=== PATIENT | female | born 1960 | race Caucasian/White ===

== ENCOUNTER → 2018-07-21 17:19 | Outpatient (CLI) | payer OTHER, MEDICAID, SELFPAY | PROVIDERS: Family Provider Physician Assistant; PCP Physician Assistant; Visit Provider Physician Assistant | DX: N30.91 Cystitis, unspecified with hematuria (principal) | CPT/HCPCS: 87077; 87086 ==

== ENCOUNTER → 2018-11-28 08:42 | Outpatient (CLI) | payer MEDICARE, MEDICAID, SELFPAY | PROVIDERS: Family Provider Physician Assistant; PCP Physician Assistant; Visit Provider Physician Assistant | DX: M54.5 Low back pain (principal); R10.2 Pelvic and perineal pain | CPT/HCPCS: 87086 ==

== ENCOUNTER → 2018-11-28 09:15 | Outpatient (CLI) | payer MEDICARE, MEDICAID, SELFPAY ==
--- NOTE | 2018-11-28 09:20 | DI.RAD.S_ITS ---
PROCEDURE: XR ABDOMEN MIN 2V INDICATIONS: Abdominal discomfort w/constipation now loose stools TECHNIQUE: 2 views of the abdomen were acquired. COMPARISON: [facility], CT, ABDOMEN WITH CONTRAST, 10/13/2013, 10:26. FINDINGS: Surgical changes and devices: None. Bowel: No pneumoperitoneum. The bowel gas pattern is normal. There is moderate to large amount of stool in distal colon. Soft tissues: The liver is enlarged measuring 25 cm in length. No suspicious abdominal calcifications. Bones: No suspicious bony abnormalities. IMPRESSION: 1. Moderate to large amount of stool in distal colon. 2. Hepatomegaly Dictated by: Codie Agrawal M.D. on 11/28/2018 at 14:37 Approved by: Codie Agrawal M.D. on 11/28/2018 at 14:39
[2018-11-28 10:57] LABS: Alanine Aminotransferase 29 IU/L (9-52); Albumin 4.4 g/dL (3.5-5.0); Albumin Globulin Ratio 1.5 (1.0-2.8); Alkaline Phosphatase 41 U/L (38-126); Aspartate Aminotransferase 20 IU/L (14-36); BUN Creatinine Ratio 23.3 (6-22); Bilirubin Total 0.6 mg/dL (0.2-1.3); Blood Urea Nitrogen 14 mg/dL (7-17); Calcium 10.1 mg/dL (8.4-10.2); Carbon Dioxide 31 mmol/L (22-32); Chloride 101 mmol/L (98-107); Estimated Glomerular Filt Rate > 60.0 mL/min (>60); Globulin 2.9 g/dL (1.7-4.1); Glucose 85 mg/dL (70-100); HEMOLYSIS < 15 (0-50); Potassium 4.4 mmol/L (3.4-5.1); Sodium 141 mmol/L (137-145); Total Protein 7.3 g/dL (6.3-8.2)
[2018-11-28 11:00] LABS: Hematocrit 38.2 % (36-46); Hemoglobin 13.2 g/dL (12.0-16.0); Mean Corpuscular HGB Conc 34.5 % (30-36); Mean Corpuscular Hemoglobin 29.4 PG (26-34); Mean Corpuscular Volume 85.1 fL (80-100); Platelet Count 263 X10^3/uL (150-400); Red Blood Cell Count 4.49 X10^6/uL (4.0-5.2); Red Cell Distribution Width 13.6 % (11.6-14.8); White Blood Cell Count 8.8 X10^3/uL (4.5-11.0)
[2018-11-28 11:03] LABS: Add Manual Diff / Slide Review YES
[2018-11-28 11:11] LABS: HEMOLYSIS < 15 (0-50); Iron 103 ug/dL (37-170)
[2018-11-28 11:22] LABS: Percent Iron Saturation 32 % (15-50); Total Iron Binding Capacity 319 ug/dL (265-497); Transferrin 250 mg/dL (206-381)
[2018-11-28 11:27] LABS: Neutrophils Absolute Manual 1320 /uL (3000-5900); RBC Morphology Normal Morphology; Total Cells Counted 100
[2018-11-28 11:28] LABS: Smudge Cells 1+
[2018-11-28 11:39] LABS: Thyroid Stimulating Hormone 1.54 uIU/mL (0.47-4.68)
[2018-11-28 11:43] LABS: Vitamin B12 613 pg/mL (239-931)
== END ==
PROVIDERS: PCP Physician Assistant; Visit Provider Physician Assistant
DX: R10.9 Unspecified abdominal pain (principal); R19.5 Other fecal abnormalities; M54.5 Low back pain; R10.2 Pelvic and perineal pain; R16.0 Hepatomegaly, not elsewhere classified
CPT/HCPCS: 36415; 74019; 80053; 82607; 83540; 83550; 84443; 85025; 87086

== ENCOUNTER → 2018-12-03 10:02 | Outpatient (CLI) | payer MEDICARE, MEDICAID, SELFPAY | PROVIDERS: PCP Physician Assistant; Visit Provider Physician Assistant | DX: R79.89 Other specified abnormal findings of blood chemistry (principal); R88.8 Abnormal findings in other body fluids and substances | CPT/HCPCS: 36415; 85060 ==

== ENCOUNTER → 2018-12-09 08:11 | Outpatient (CLI) | payer MEDICARE, MEDICAID, SELFPAY ==
--- NOTE | 2018-12-09 08:13 | DI.US.S_ITS ---
PROCEDURE: US ABDOMEN COMPLETE INDICATIONS: Hepatomegaly seen on Xray of abdomen TECHNIQUE: Real-time scanning was performed of the abdominal and retroperitoneal organs, with image documentation. COMPARISON: [facility], CT, CHEST/ABD/PEL WITH CONTRAST, 04/02/2013, 9:35. [facility], MR, ABDOMEN W&WO CONTRAST, 07/14/2013, 8:49. [facility], MR, ABDOMEN W&WO CONTRAST, 04/17/2013, 11:53. [facility], US, ABDOMEN LIMITED, 04/25/2013, 7:30. [facility], CT, ABDOMEN WITH CONTRAST, 10/13/2013, 10:26. [facility], CR, XR ABDOMEN MIN 2V, 11/28/2018, 9:36. [facility], US, ABDOMEN COMPLETE, 07/02/2012, 9:36. FINDINGS: Liver: The liver size is considered to be within normal limits. There are nonvascular structures, which are mildly hyperechoic to surrounding normal liver. Within the right lobe there is a 1.5 x 1.2 x 1.2 cm lesion. Within the left lobe there is a 1.3 x 0.9 x 1.1 cm lesion. A likely 9 mm cyst can be seen within the right lobe of the liver. Potential liver calcifications can be seen on the right posteriorly. Gallbladder: No findings of gallstones or sludge are seen. The gallbladder wall is not thickened, measuring 3 mm or less. No specific pericholecystic fluid is seen. The sonographic Garcia sign is negative. Biliary ducts: Intrahepatic bile ducts are non-dilated. Areas of ectasia can be seen within the common bile duct measuring up to 8.6 mm. Pancreas: Visualized portions of the pancreas are sonographically normal. Spleen: Spleen is normal in size and homogeneous in echotexture. Kidneys: Kidneys are normal in size and echotexture. Right kidney measures 11.1 cm long; left kidney measures 11.8 cm long. No hydronephrosis or nephrolithiasis. No solid masses. Aorta: Visualized aorta is normal in caliber at less than 3 cm. Iliacs: Proximal common iliac arteries are normal in caliber at less than 2.5 cm. IVC: Intrahepatic inferior vena cava is patent. Miscellaneous: No free abdominal fluid. IMPRESSION: The liver size is considered to be within normal limits. Hyperechoic liver lesions are seen, which are likely related to benign hemangiomas. These are better seen by prior CT. Mild biliary dilatation. As clinically appropriate, an MRCP could be considered for further evaluation (assuming that there is no contraindication to MRI). Dictated by: Landry Ramsey M.D. on 12/09/2018 at 8:26 Approved by: Landry Ramsey M.D. on 12/09/2018 at 8:33
== END ==
PROVIDERS: PCP Physician Assistant; Visit Provider Physician Assistant
DX: R16.0 Hepatomegaly, not elsewhere classified (principal); K83.8 Other specified diseases of biliary tract
CPT/HCPCS: 76700

== ENCOUNTER → 2018-12-10 16:37 | Outpatient (CLI) | payer MEDICARE, MEDICAID, SELFPAY | PROVIDERS: PCP Physician Assistant | DX: C91.10 Chronic lymphocytic leukemia of B-cell type not having achieved remission (principal) | CPT/HCPCS: 36415; 80053; 83615; 85025; 88271; 88275; 99204; 99214 ==

== ENCOUNTER → 2019-01-03 11:31 | Outpatient (CLI) | payer MEDICARE, MEDICAID, SELFPAY ==
--- NOTE | 2019-01-03 11:32 | DI.CT.S_ITS ---
PROCEDURE: CT SOFT TISSUE NECK W CON INDICATIONS: cll-staging TECHNIQUE: After the administration of intravenous contrast, 3.0 mm axial sections acquired from the sella to the aortic arch. Additional oblique axial 3.0 mm sections acquired through the pharynx. 3 mm thick coronal and sagittal reformats were generated. For radiation dose reduction, the following was used: automated exposure control. COMPARISON: [facility], CT, CT CHEST ABD PEL W CON, 01/03/2019, 13:03. [facility], CT, SOFT TISSUE NECK W&WO CONTRAST, 03/10/2016, 8:55. FINDINGS: Image quality: Excellent. Lymph nodes: Multiple sites of mildly prominent lymph nodes can be seen throughout the neck. The largest is seen on the right at level IIA, measuring 12 x 10 mm. The largest solitary lymph node on the left is also seen at level IIA measuring 14 x 9 mm. Vessels: Visualized vasculature appears patent. Neck spaces: The oropharynx, nasopharynx, and pharynx demonstrate no mucosal lesions. The vocal cords, false vocal cords, pyriform sinuses, epiglottis, vallecula, and tongue base all appear normal. Extramucosal spaces appear unremarkable. Glands: The parotid and submandibular glands appear normal. Thyroid gland demonstrates no significant CT abnormality. Miscellaneous: Visualized brain and orbits appear normal. Lung apices appear clear. Superficial soft tissues appear normal. Bones: No suspicious bony lesions. Visualized sinuses and mastoids appear unremarkable. Age-appropriate degenerative changes can be seen, which are worst at the C5-C6 level. IMPRESSION: Multiple sites of mildly prominent lymph nodes can be seen throughout the neck, which are more prominent than 2016. Incidental note is made of: Focal C5-C6 degenerative change Dictated by: Landry Ramsey M.D. on 01/03/2019 at 14:24 Approved by: Landry Ramsey M.D. on 01/03/2019 at 14:35
--- NOTE | 2019-01-03 11:32 | DI.CT.S_ITS ---
PROCEDURE: CT CHEST ABD PEL W CON INDICATIONS: cll-staging TECHNIQUE: After the administration of oral and intravenous contrast, 5 mm thick sections acquired from the lung apices to the symphysis. 5 mm coronal and sagittal reformats were performed, with additional 7 mm coronal MIP reformats through the lungs. For radiation dose reduction, the following was used: automated exposure control, adjustment of mA and/or kV according to patient size. COMPARISON: [facility], CT, CHEST/ABD/PEL WITH CONTRAST, 04/02/2013, 9:35. FINDINGS: Image quality: Excellent. CHEST: Lungs and pleura: No acute consolidation. 1 mm nodule right upper lobe on image 31 series 3. Additional 2 mm nodule seen in the left upper lobe on image 27 series 3 however this is unchanged since 04/02/13. No pleural effusions or pneumothorax. Central and peripheral airways appear patent and normal in caliber. Mediastinum: Enlarged left supraclavicular lymph node is seen on image 10 series 2 measuring 2.0 x 1.3 cm. This is increased in size since the right study from 2013. Heart size is normal. No pericardial effusion. Mildly enlarged right hilar lymph node measuring 1.5 cm short axis however this appears unchanged since the prior study. Thoracic aorta and central pulmonary arteries are normal in size. Esophagus is normal in caliber. No hiatal hernia. Chest wall: There are enlarged bilateral axillary lymph nodes, for example measuring 1.4 x 2.4 cm on the left and 1.9 x 1.5 cm on the right. Thyroid gland negative. ABDOMEN: Solid organs: Multiple hypodense lesions present in the liver, for example image 55 series 2 in the left lobe measuring 1.2 cm. Additional hypodense lesions present in the inferior tip of the liver, for example image 77 series 2 measuring 1.2 cm. These are grossly unchanged since the 2013 study suggesting hemangiomas or cysts. . Gallbladder negative. Biliary system is non dilated. Pancreas enhances normally. Spleen is enlarged measuring 12.8 cm in length. No adrenal nodules. Kidneys demonstrate normal size and enhancement, without hydronephrosis. Peritoneum and bowel: Bowel loops demonstrate normal wall thickness and caliber. No free fluid or air. Nodes and vessels: Retroperitoneal left aortic lymph node measuring 2.1 x 0.7 cm on image 74. Aorta and inferior vena cava are normal in size. Miscellaneous: Tiny fat containing umbilical hernia. PELVIS: Genitourinary: Bladder wall thickness is normal. Miscellaneous: No inguinal hernias or adenopathy. There are shotty inguinal lymph nodes measuring up to 8-9 mm, however no pathologic enlargement by size criteria Bones: No suspicious bony lesions. No vertebral body compression fractures. IMPRESSION: Mildly enlarged bilateral axillary, retroperitoneal, left supraclavicular lymph nodes as detailed above. Additional right hilar lymph node appears grossly unchanged. Mild splenomegaly. 1 mm right upper lobe pulmonary nodule. Additional chronic and incidental findings as above. Dictated by: Frankie Herrera M.D. on 01/03/2019 at 16:40 Approved by: Frankie Herrera M.D. on 01/03/2019 at 16:55
[2019-01-03 12:15] LABS: Hematocrit 37.3 % (36-46); Hemoglobin 12.8 g/dL (12.0-16.0); Mean Corpuscular HGB Conc 34.3 % (30-36); Mean Corpuscular Hemoglobin 29.2 PG (26-34); Mean Corpuscular Volume 85.2 fL (80-100); Platelet Count 258 X10^3/uL (150-400); Red Blood Cell Count 4.38 X10^6/uL (4.0-5.2); Red Cell Distribution Width 13.6 % (11.6-14.8)
[2019-01-03 12:18] LABS: Add Manual Diff / Slide Review YES
[2019-01-03 12:43] LABS: Neutrophils Absolute Manual 2750 /uL (3000-5900); RBC Morphology Normal Morphology; Total Cells Counted 100
[2019-01-03 12:53] LABS: Alanine Aminotransferase 23 IU/L (9-52); Albumin 4.8 g/dL (3.5-5.0); Albumin Globulin Ratio 1.6 (1.0-2.8); Alkaline Phosphatase 47 U/L (38-126); Aspartate Aminotransferase 22 IU/L (14-36); BUN Creatinine Ratio 23.3 (6-22); Bilirubin Total 0.6 mg/dL (0.2-1.3); Blood Urea Nitrogen 14 mg/dL (7-17); Calcium 10.2 mg/dL (8.4-10.2); Carbon Dioxide 28 mmol/L (22-32); Chloride 99 mmol/L (98-107); Estimated Glomerular Filt Rate > 60.0 mL/min (>60); Glucose 81 mg/dL (70-100); HEMOLYSIS < 15 (0-50); Lactate Dehydrogenase 388 U/L (313-618); Potassium 4.1 mmol/L (3.4-5.1); Sodium 138 mmol/L (137-145); Total Protein 7.8 g/dL (6.3-8.2)
[2019-01-07 15:14] LABS: Immunoglobulin A 49 mg/dL (81-463); Immunoglobulin G, Quantitative 1140 mg/dL (694-1618); Immunoglobulin M, Quantitative 68 mg/dL (48-271)
== END ==
PROVIDERS: PCP Physician Assistant
DX: C91.90 Lymphoid leukemia, unspecified not having achieved remission (principal)
CPT/HCPCS: 36415; 70491; 71260; 74177; 80053; 82784; 83615; 85025; Q9967

== ENCOUNTER 2019-01-06 20:55 | Emergency (ER) | payer MEDICARE, MEDICAID, SELFPAY ==
[2019-01-06 20:56] VITALS: BP 134/70; PULSE 76; RESP 16; TEMP 37.1; O2SAT 100
--- NOTE | 2019-01-06 22:18 | ED_ITS ---
HPI - Extremity Problem General Chief complaint: Extremity Problem,Nontraumatic Stated complaint: right hand cramp Time Seen by Provider: 01/06/19 21:52 Source: patient Mode of arrival: ambulatory Limitations: no limitations History of Present Illness HPI Narrative: Patient is a 50-year-old female who presents with right hand spasm. 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 She painted for about hours today with an hour long break. She says it gradually became very painful in her hands cramping. She took ibuprofen and meloxicam prior to arrival she has been trying elevated and ice it overall is quite painful. She has no redness no fever she denies any real injury. She is very tender on the wrist flexor side. She has 2 splinters in her fingers she said that they are from a adriana anaya however given there for a little while on no redness around them fairly superficial MD Complaint: extremity pain Location: right Related Data Home Medications Medication Instructions Recorded Confirmed magnesium oxide 400 mg PO QDAY #0 12/27/16 01/01/19 omega 5-ulc-mzz-fish oil [Fish Oil] 1,000 mg PO QDAY #0 12/27/16 01/01/19 acyclovir 400 mg tablet 400 mg PO TID PRN tab 03/04/18 01/01/19 cetirizine 10 mg capsule 10 mg PO DAILY 03/04/18 01/01/19 fluconazole 150 mg tablet 150 mg PO AMINS PRN tab 03/04/18 01/01/19 fluticasone propionate 50 1 spray INTRANASAL BID PRN gm 03/04/18 01/01/19 mcg/actuation nasal spray,suspension biotin 2,500 mcg capsule 2,500 mcg PO DAILY 06/13/18 01/01/19 [VITAMIN D3] 10,000 units PO QDAY #0 10/01/18 01/01/19 estradiol 0.01% (0.1 mg/gram) 1 gram VAG 2XW 11/28/18 01/01/19 vaginal cream methylcellulose (laxative) 500 mg 500 mg PO DAILY 11/28/18 01/01/19 tablet Previous Rx's Medication Instructions Recorded Disabled Parking Permit ea #1 03/12/17 lorazepam [Ativan] 0.5 - 1 mg PO QDAY PRN #30 tab 02/26/18 estradiol 10 mcg vaginal tablet 10 mcg VAG 2XW #8 tab 11/01/18 albuterol sulfate HFA 90 2 puff INHALATION Q4-6H PRN #18 11/28/18 mcg/actuation aerosol inhaler gram diclofenac 1 % topical gel 2 gram TOP QID #100 gram 11/28/18 meloxicam 15 mg tablet 15 mg PO DAILY #30 tab 11/28/18 varicella-zoster glycoE [id number] 50 mcg IM ONCE #1 each 11/28/18 adj(PF) 50 mcg/0.5 mL IM susp, kit diazepam [Valium] 5 mg PO Q12HR PRN #10 tab 01/06/19 Allergies Allergy/AdvReac Type Severity Reaction Status Date / Time adhesive [ADHESIVE] Allergy Intermediate Blisters Verified 01/06/19 21:00 codeine [CODEINE] Allergy Intermediate AGITATED, Verified 01/06/19 21:00 TACHYCARDIA, DIFFICULTY BREATHING morphine [MORPHINE] Allergy Intermediate hallucinations, Verified 01/06/19 21:00 anxiety, feeling of terror phenytoin [PHENYTOIN] AdvReac Severe Flushing, Verified 01/06/19 21:00 anxiety, red rash Review of Systems Review of Systems GENERAL: Denies chills,fever HEENT: Denies throat pain RESPIRATORY: Denies dyspnea, cough, wheezing CARDIOVASCULAR: Denies chest pain, palpitations GASTROINTESTINAL: Denies nausea, vomiting MUSCULOSKELETAL: See HPI SKIN: No rash, no laceration, no pruritus NEUROLOGIC: Denies weakness, dizziness, headache, numbness 8 point review of systems is negative except for those stated above and HPI PFSH Medical History Cerebral cavernoma (Resolved) Surgical History History of excision of mass (Resolved) Family History (Updated 08/06/18 @ 08:49 by Ann Medeiros) Father Congestive heart failure Mother History of heart surgery Social History Smoking Status: Never smoker second hand exposure: No alcohol intake: current substance use type: does not use Family History Father Congestive heart failure Mother History of heart surgery Social History Smoking Status: Never smoker second hand exposure: No alcohol intake: current substance use type: does not use Exam Initial Vital Signs Initial Vital Signs: Vital Signs Temperature 98.8 F 01/06/19 20:56 Pulse Rate 76 01/06/19 20:56 Respiratory Rate 16 01/06/19 20:56 Blood Pressure 134/70 01/06/19 20:56 Pulse Oximetry 100 01/06/19 20:56 GENERAL: Well-appearing, well-nourished and in no acute distress. CARDIOVASCULAR: peripheral pulses in tact, cap refill <2 sec RESPIRATORY: No respiratory distress, speaks in full sentences without difficulty EXTREMITIES: Normal range of motion, no clubbing or edema. Neurovascularly intact Right hand fingers are flexed. She has obvious swelling of her flexor retinaculum pain is extremely tender to touch is reproducible. She has no erythema. I am able to massage of the palmar side of the hand a little bit. She is is minimally able to extend fingers. Cap refill less than 2 seconds neurovascularly intact strong radial pulse. NEUROLOGICAL: Cranial nerves II through XII grossly intact. Normal gait and speech. SKIN: Warm, dry, no petechiae, no rashes or lesions. Course Orders Ordered: Discontinued Medications Diazepam (Valium) 5 mg PO NOW ONE Stop: 01/06/19 22:33 Last Admin: 01/06/19 22:38 Dose: 5 mg Vital Signs - 8 hr 01/06/19 20:56 01/06/19 22:47 Temperature 98.8 F Pulse Rate 76 Pulse Rate [Right Radial] 88 Respiratory Rate 16 Blood Pressure 134/70 Pulse Oximetry 100 MDM - Extremity (Nontraumatic) MDM Narrative Medical decision making narrative: At this time I think patient has an overuse injury seems to be spasm or tendinitis I do not believe it is infected. She has no definitive injury I do not think she can x-ray. She has meloxicam at home. Recommend she take 15 mg once daily. She is given a Valium to take when she gets home. She drove herself. Discharge Plan Departure Patient Disposition: Home Clinical Impression: Hand or foot spasms Discharge Date/Time: 01/06/19 22:50 Interventions: ED Discharge Assessment Last Done: 01/06/19 22:50 Instructions: DI for Muscle Spasm Activity Restrictions/Additional Instructions: *You have been diagnosed with right hand spasm *What to do: This is likely from overuse possible tendinitis which is inflamed tendon recommend rest and said compression with Dustin *Continue to take medications as directed Meloxicam 15 mg once a day do not combine with any other NSAIDs such as ibuprofen, naproxen,, Aleve, Advil etc Valium 5 mg every 12 hours only if needed for muscle spasm. Do not drive or operate heavy machinery or sign important documents while taking medication this can cause drowsiness *Follow up with your primary care provider in 2-3 days *Return to ER if you should have increasing pain, redness, or any new, worsening or concerning symptoms Prescriptions: New diazepam [Valium] 5 mg tablet 5 mg PO Q12HR PRN (Reason: muscle spasm) Qty: 10 RF: 0 No Action acyclovir 400 mg tablet 400 mg PO TID PRN (Reason: Outbreak) RF: 0 fluconazole [Diflucan] 150 mg tablet 150 mg PO AMINS PRN (Reason: Outbreak) RF: 0 fluticasone propionate 50 mcg/actuation spray,suspension 1 spray Intranasal BID PRN (Reason: Allergy Symptoms) RF: 0 cetirizine [Zyrtec] 10 mg capsule 10 mg PO DAILY RF: 0 biotin 2,500 mcg capsule 2,500 mcg PO DAILY RF: 0 estradiol 0.01 % (0.1 mg/gram) cream 1 gram VAG 2XW RF: 0 Citrucel 500 mg tablet 500 mg PO DAILY RF: 0 albuterol sulfate [Ventolin HFA] 90 mcg/actuation HFA aerosol inhaler 2 puff INHALATION Q4-6H PRN (Reason: shortness of breath or wheezing) Qty: 18 RF: 3 Shingrix (PF) 50 mcg/0.5 mL suspension for reconstitution 50 mcg IM ONCE Qty: 1 RF: 1 diclofenac sodium 1 % gel 2 gram TOP QID Qty: 100 RF: 3 meloxicam 15 mg tablet 15 mg PO DAILY Qty: 30 RF: 3 magnesium oxide 400 MG tablet 400 mg PO QDAY Qty: 0 RF: 0 omega 1-ybp-ydu-fish oil [Fish Oil] 1,000 MG capsule 1,000 mg PO QDAY Qty: 0 RF: 0 Disabled Parking Permit Qty: 1 RF: 0 lorazepam [Ativan] 1 MG tablet 0.5 - 1 mg PO QDAY PRN Qty: 30 RF: 0 [VITAMIN D3] 10,000 units PO QDAY Qty: 0 RF: 0 estradiol [Yuvafem] 10 mcg tablet 10 mcg VAG 2XW Qty: 8 RF: 11 Referrals: Lisa Velazco PA-C [Primary Care Provider] -
[2019-01-06] MEDS: diazePAM 5 MG TABLET PO (22:38)
[2019-01-06 22:47] VITALS: PULSE 88
== END 2019-01-06 22:50 | disposition home or self-care (01) ==
PROVIDERS: Emergency Provider Emergency Medicine; PCP Physician Assistant
DX: R25.2 Cramp and spasm (principal); M79.641 Pain in right hand
CPT/HCPCS: 99282; 99283

== ENCOUNTER → 2019-01-24 15:42 | Outpatient (CLI) | payer MEDICARE, MEDICAID, SELFPAY ==
[2019-01-24 18:05] LABS: Erythrocyte Sedimentation Rate 13 MM/HR (0-20)
[2019-01-26 18:55] LABS: ANA Screen, IFA Negative (Negative)
== END ==
PROVIDERS: Hospitalist; PCP Physician Assistant; Visit Provider Physician Assistant
DX: M25.539 Pain in unspecified wrist (principal)
CPT/HCPCS: 36415; 85651; 86038

== ENCOUNTER → 2019-02-26 15:48 | Outpatient (CLI) | payer MEDICARE, MEDICAID, SELFPAY ==
--- NOTE | 2019-02-26 15:55 | DI.RAD.S_ITS ---
PROCEDURE: XR HAND RT MIN 3V INDICATIONS: Concern for connective tissue disorder; has chronic lymphatic leukemia TECHNIQUE: 3 views of the hand(s) acquired. COMPARISON: None. FINDINGS: Bones: No fractures or dislocations. Carpal bones are normally aligned. No suspicious bony lesions. First CMC and triscaphe joint degeneration, mild. No focal osseous destruction or erosion identified to. 2 mm loose body or chronic fracture fragment projects adjacent to the ulnar styloid Soft tissues: No suspicious soft tissue calcifications. IMPRESSION: Mild degenerative changes as above Small loose body or chronic fracture fragment projects adjacent to the ulnar styloid. Dictated by: Frankie Herrera M.D. on 02/26/2019 at 17:21 Approved by: Frankie Herrera M.D. on 02/26/2019 at 17:24
--- NOTE | 2019-02-26 15:55 | DI.RAD.S_ITS ---
PROCEDURE: XR SHOULDER RT MIN 2V INDICATIONS: Concern for connective tissue disorder; has chronic lympahtic leukemia TECHNIQUE: 3 views of the shoulder were acquired. COMPARISON: [facility], , SHOULDER MINIMUM 2VIEW RIGHT, 06/04/2017, 8:59. FINDINGS: Bones: No fractures or dislocations. No suspicious bony lesions. Visualized ribs appear intact. Mild AC joint degeneration and glenohumeral subchondral sclerosis and spurring. No erosions identified. Soft tissues: No suspicious soft tissue calcifications. IMPRESSION: Mild right shoulder osteoarthritis Dictated by: Frankie Herrera M.D. on 02/26/2019 at 17:05 Approved by: Frankie Herrera M.D. on 02/26/2019 at 17:06
--- NOTE | 2019-02-26 15:55 | DI.RAD.S_ITS ---
PROCEDURE: XR SHOULDER LT MIN 2V INDICATIONS: Concern for connective tissue disorder; has CLL TECHNIQUE: 3 views of the shoulder were acquired. COMPARISON: [facility], , SHOULDER MINIMUM 2VIEW RIGHT, 06/04/2017, 8:59. FINDINGS: Bones: No fractures or dislocations. No suspicious bony lesions. Visualized ribs appear intact. Incidental lateral downsloping appearance of the acromion. Mild glenohumeral subchondral sclerosis burning. Soft tissues: No suspicious soft tissue calcifications. IMPRESSION: Mild left shoulder degeneration. Incidentally noted lateral downsloping appearance of the acromion. If the patient's pain or other symptoms persist, consider further evaluation with MRI Dictated by: Frankie Herrera M.D. on 02/26/2019 at 16:32 Approved by: Frankie Herrera M.D. on 02/26/2019 at 16:34
--- NOTE | 2019-02-26 15:55 | DI.RAD.S_ITS ---
PROCEDURE: XR CERVICAL SPINE 2V OR 3V INDICATIONS: Concern for connective tissue disorder; has chronic lymphatic leukemia TECHNIQUE: 4 view(s) of the cervical spine were acquired. COMPARISON: [facility], CERVICAL SPINE 2 OR 3 VIEWS, 03/21/2017, 14:07. FINDINGS: Bones: No fractures or dislocations to the C7 level. The lateral masses of C1 appear intact on the odontoid view. No suspicious bony lesions. Multilevel degenerative endplate sclerosis and spurring. Diffuse facet arthropathy. Severe disc space narrowing of the C5-C6 level. Mild C6-C7 disc space narrowing. Mild dextrocurvature. Soft tissues: No prevertebral soft tissue swelling. IMPRESSION: Overall, grossly unchanged examination since 07/22/17 as above. Dictated by: Frankie Herrera M.D. on 02/26/2019 at 17:06 Approved by: Frankie Herrera M.D. on 02/26/2019 at 17:10
--- NOTE | 2019-02-26 15:55 | DI.RAD.S_ITS ---
PROCEDURE: XR HAND LT MIN 3V INDICATIONS: Concern for connective tissue disorder; has chronic lympahtic leukemia TECHNIQUE: 3 views of the hand(s) acquired. COMPARISON: None. FINDINGS: Bones: No fractures or dislocations. Carpal bones are normally aligned. No suspicious bony lesions. First CMC and triscaphe joint degeneration. No focal osseous destruction or erosions identified. Soft tissues: No suspicious soft tissue calcifications. IMPRESSION: Mild degenerative changes as above. Dictated by: Frankie Herrera M.D. on 02/26/2019 at 17:18 Approved by: Frankie Herrera M.D. on 02/26/2019 at 17:21
== END ==
PROVIDERS: PCP Physician Assistant; Visit Provider Physician Assistant
DX: C91.10 Chronic lymphocytic leukemia of B-cell type not having achieved remission (principal); M54.2 Cervicalgia; M79.89 Other specified soft tissue disorders; M25.541 Pain in joints of right hand; M25.542 Pain in joints of left hand; M19.012 Primary osteoarthritis, left shoulder; M19.011 Primary osteoarthritis, right shoulder; M18.0 Bilateral primary osteoarthritis of first carpometacarpal joints; M19.032 Primary osteoarthritis, left wrist; M19.031 Primary osteoarthritis, right wrist
CPT/HCPCS: 72040; 73030; 73130

== ENCOUNTER → 2019-03-04 13:00 | Oncology outpatient (ONC) | payer MEDICARE, MEDICAID, SELFPAY ==
[2018-12-17 10:39] LABS: Miscellaneous to LabCorp SEE SEPARATE REPORTS
[2019-01-01 15:58] VITALS: BP 108/67; PULSE 81; RESP 18; TEMP 36.9; O2SAT 100
--- NOTE | 2019-01-01 16:33 | P.CONONC_ITS ---
History of Present Illness - Data of Consult Consult date: 01/01/19 Primary Care Provider: Lisa Velazco PA-C - Consult Narrative Narrative: Diagnosis: CLL, not yet staged. History of present illness: Reina Leyva is a 58 year old female who is referred for further evaluation of a newly diagnosed CLL. The patient reports that she has had a number of unusual symptoms. The 1st was some abdominal and back pain. This has been present for several weeks to few months. She had a plain film of the abdomen that showed above in stool. She was treated with some colonics. She did have some mucousy blood mixed in with the stool but did have relief of her constipation and her back pain has resolved she still is having some intermittent difficulty with her bowels. Her other big complaint has joint pain and bone pain particularly in the feet but also in the hands. She has noted some swelling in her feet. she also has been aware of some swollen lymph nodes in her neck. She has had some fatigue. She also notes some hot flashes and sweats. Her appetite has been stable. She denies any nausea or vomiting. She did lose some weight around the time she was doing colonics but has gained back. As part of her evaluation, she had a CBC done on November 28. It showed a white count of 8.8 with a normal hemoglobin and platelet count. She had 61% lymphocytes noted. This would get an absolute lymphocyte count of 5368. Flow cytometry was done that showed a monoclonal B-cell population consistent with CLL. Fish panel was normal. CD 38 was negative by flow cytometry. Her past medical history is notable for hyperparathyroidism. She has had a previous parathyroidectomy. She has had some her G and cold sores. She tells me that she has had a prior colonoscopy although she can't remember exactly when. Her current medications include acyclovir is needed albuterol biotin Zyrtec diclofenac vaginal estradiol fluconazole as needed Flonase lorazepam meloxicam and vitamin-D. Her family history is notable for her father having had CLL. Her mother has MGUS. Social history: She does not smoke or use alcohol. CC: Osmani Hwang MD Home Medications and Allergies Home Medications Medication Instructions Recorded Confirmed Type magnesium oxide 400 mg PO QDAY #0 12/27/16 01/01/19 History omega [id number] oil [Fish Oil] 1,000 mg PO QDAY #0 12/27/16 01/01/19 History Disabled Parking Permit ea #1 03/12/17 11/28/18 Rx lorazepam [Ativan] 0.5 - 1 mg PO QDAY PRN #30 tab 10/29/17 01/01/19 Rx acyclovir 400 mg tablet 400 mg PO TID PRN tab 03/04/18 01/01/19 History cetirizine 10 mg capsule 10 mg PO DAILY 03/04/18 01/01/19 History fluconazole 150 mg tablet 150 mg PO AMINS PRN tab 03/04/18 01/01/19 History fluticasone propionate 50 1 spray INTRANASAL BID PRN gm 03/04/18 01/01/19 History mcg/actuation nasal spray,suspension biotin 2,500 mcg capsule 2,500 mcg PO DAILY 06/13/18 01/01/19 History [VITAMIN D3] 10,000 units PO QDAY #0 10/01/18 01/01/19 History estradiol 10 mcg vaginal tablet 10 mcg VAG 2XW #8 tab 11/01/18 01/01/19 Rx albuterol sulfate HFA 90 2 puff INHALATION Q4-6H PRN #18 11/28/18 01/01/19 Rx mcg/actuation aerosol inhaler gram diclofenac 1 % topical gel 2 gram TOP QID #100 gram 11/28/18 01/01/19 Rx estradiol 0.01% (0.1 mg/gram) 1 gram VAG 2XW 11/28/18 01/01/19 History vaginal cream meloxicam 15 mg tablet 15 mg PO DAILY #30 tab 11/28/18 01/01/19 Rx methylcellulose (laxative) 500 mg 500 mg PO DAILY 11/28/18 01/01/19 History tablet varicella-zoster glycoE [id number] 50 mcg IM ONCE #1 each 11/28/18 Rx adj(PF) 50 mcg/0.5 mL IM susp, kit Allergies Allergy/AdvReac Type Severity Reaction Status Date / Time adhesive [ADHESIVE] Allergy Intermediate Blisters Verified 11/28/18 08:12 codeine [CODEINE] Allergy Intermediate AGITATED, Verified 11/28/18 08:12 TACHYCARDIA, DIFFICULTY BREATHING morphine [MORPHINE] Allergy Intermediate hallucinations, Verified 11/28/18 08:12 anxiety, feeling of terror phenytoin [PHENYTOIN] AdvReac Severe Flushing, Verified 11/28/18 08:12 anxiety, red rash Medical History - Medical, Surgical, Family History Medical History: Medical History (Updated 01/01/19 @ 16:22 by Osmani Hwang MD) Cerebral cavernoma Surgical History: Surgical History (Updated 08/06/18 @ 08:48 by Ann Medeiros) History of excision of mass Family History: Family History (Updated 08/06/18 @ 08:49 by Ann Medeiros) Father Congestive heart failure Mother History of heart surgery - Social History Smoking Status: Never smoker Review of Systems - Patient Self-Reported Symptoms SR Constitution: Fatigue/Malaise, Night Sweats SR eye issues: Vision changes SR ears, nose, mouth, throat issues: Swollen glands SR Cardiovascular issues: Palpitations SR Gastrointestinal issues: Diarrhea, Constipation SR Genitourinary issues: Frequent urination SR Musculoskeletal issues: Joint pain or swelling, Difficulty walking, Bone pain SR Neuro issues: Headache, Numbness or tingling SR Hematologic issues: Bleeding/bruising, Swollen lymph nodes Constitutional: normal activity level, no weight loss Eyes: change in vision Respiratory: shortness of breath Gastrointestinal: constipation, abnormal stools, change in bowel habits, no change in appetite Musculoskeletal: pain, swelling Psychiatric: anxiety Endocrine: hormone therapy Hematologic/Lymphatic: enlarged lymph nodes Exam Vital signs: Vital Signs Temp Pulse Resp BP Pulse Ox 01/01/19 15:58 98.5 F 81 18 108/67 100 Intake and Output 01/01/19 01/01/19 01/01/19 07:59 15:59 23:59 Other: Weight 62.2 kg Patient Weight 01/01/19 23:59 Weight 62.2 kg - Constitutional positive no acute distress, positive average body habitus - Routine HEENT Exam Head: Present: normocephalic, atraumatic Eye: Present: EOMI, PERRL. Absent: conjunctival icterus, scleral injection ENT: Present: mucous membranes moist, oropharynx clear Comments: She does have a small stye on the left lower eyelid. - Routine Neck Exam Present: supple, lymphadenopathy. Absent: thyromegaly Comments: She has bilateral small adenopathy all less than a cm. There is also some small supraclavicular nodes. - Routine Chest/Breast/Axilla Exam Axillae: Present: lymphadenopathy Comments: She has some small right-sided axillary adenopathy. I do not feel any left- sided nodes. - Routine Respiratory Exam Present: Clear to auscultation bilaterally. Absent: rales, wheezes - Routine Cardiovascular Exam Present: RRR, S1, S2. Absent: murmur - Routine Abdominal Exam Present: soft, normoactive bowel sounds. Absent: tenderness, organomegaly, mass - Routine Extremities Exam Present: edema. Absent: cyanosis, clubbing Comments: She has trace nonpitting edema in her feet. - Routine Back/Spine Exam Back/Spine: Absent: vertebral tenderness - Routine Skin Exam Present: intact. Absent: petechiae, rash - Routine Neurological Exam Present: alert, oriented X3 - Routine Psychiatric Exam Present: normal affect, normal thought process Results - Labs Laboratory Last Values Ref Test (Refrig) See separate reports 12/10/18 14:39 - Imaging Additional studies: Procedures Repair of rectocele (10/16/11) Assessment and Plan (1) CLL (chronic lymphocytic leukemia) Current visit: Yes Status: Acute As is a 58-year-old woman with mild lymphocytosis. Her flow cytometry does demonstrate a monoclonal B-cell population consistent with CLL. At the absolute lymphocyte count was just slightly over 5000. This would meet the definition for CLL. She does have some small lymph nodes on exam. I do not believe any or over the size cut off to call this stage I. We will plan on getting a CT scan of the neck chest abdomen pelvis to evaluate her baseline sia size. There is no sign of hepatic splenomegaly on recent ultrasound. There is no anemia or thrombocytopenia. I reviewed the diagnosis and natural history of CLL with the patient. I pointed out that multiple studies have shown no benefit to early treatment. The reason for treating CLL would be to relieve symptoms related to her disease. She does have a lot of joint pain and bowel changes but I do not believe that these are necessarily related to her CLL. She has had some recurrence bacterial infections as well as MRSA within the last year or so. I think is reasonable check her baseline antibody levels as these can be suppressed in CLL. We will plan on checking routine labs as well as her antibody levels and a baseline CT. We will call her when these results are available and have her return to clinic in about 3 months for follow-up.
--- NOTE | 2019-01-15 14:19 | PC.NURSE ---
Patient requested per telephone on 01/09/[address] Hwang about her atibody blood work of 01/03/19. This was communicated to Dr. Hwang who agreed to call patient at his convenience.
[2019-02-26 14:19] LABS: Alanine Aminotransferase 16 IU/L (9-52); Albumin 4.7 g/dL (3.5-5.0); Albumin Globulin Ratio 1.7 (1.0-2.8); Alkaline Phosphatase 60 U/L (38-126); Aspartate Aminotransferase 16 IU/L (14-36); Bilirubin Total 0.5 mg/dL (0.2-1.3); Blood Urea Nitrogen 15 mg/dL (7-17); Calcium 10.7 mg/dL (8.4-10.2); Carbon Dioxide 28 mmol/L (22-32); Chloride 101 mmol/L (98-107); Estimated Glomerular Filt Rate > 60.0 mL/min (>60); Globulin 2.8 g/dL (1.7-4.1); Glucose 96 mg/dL (70-100); HEMOLYSIS < 15 (0-50); Lactate Dehydrogenase 440 U/L (313-618); Potassium 4.2 mmol/L (3.4-5.1); Sodium 139 mmol/L (137-145); Total Protein 7.5 g/dL (6.3-8.2)
[2019-02-26 14:21] LABS: Hematocrit 35.6 % (36-46); Hemoglobin 12.1 g/dL (12.0-16.0); Mean Corpuscular Hemoglobin 28.6 PG (26-34); Mean Corpuscular Volume 84.3 fL (80-100); Platelet Count 321 X10^3/uL (150-400); Red Blood Cell Count 4.23 X10^6/uL (4.0-5.2); Red Cell Distribution Width 13.3 % (11.6-14.8); White Blood Cell Count 14.3 X10^3/uL (4.5-11.0)
[2019-02-26 14:50] LABS: Add Manual Diff / Slide Review YES
[2019-02-26 15:33] LABS: Neutrophils Absolute Manual 3289 /uL (3000-5900); RBC Morphology Normal Morphology; Total Cells Counted 100
[2019-03-04 13:14] VITALS: BP 114/72; PULSE 85; RESP 16; TEMP 36.7; O2SAT 100
--- NOTE | 2019-03-04 13:39 | P.PNONC_ITS ---
PN -Subjective Interval history: Diagnosis: CLL, stage II Previous treatment: None Interval history: The patient is a 58-year-old woman who returns today for follow-up. She was seen initially about 2 months ago with a modest elevation in her lymphocyte count. She had some small adenopathy on exam. She had a number of constitutional symptoms including fatigue and generalized joint pain and swelling. She has noted some difficulty with her balance and weakness. She has been taking diclofenac and Tylenol for her joint pain. She has also used some topical anti-inflammatories but is not found them to be very helpful. She does have an appointment pending with a outside cutter in a couple of months. She has been working with acupuncture and a chiropractor. Neither of these have been particularly effective. She has also tried CBD. She has not noticed any increasing adenopathy. She does feel some nodes in her neck. Her appetite has been somewhat low and she has lost a few lb. No nausea or vomiting. No shortness of breath or cough. She has not had any recent infections. Her past medical history is notable for hyperparathyroidism. She has had a previous parathyroidectomy. - Patient Self-Reported Symptoms SR Constitution: Chills, Fatigue/Malaise SR eye issues: Vision changes SR ears, nose, mouth, throat issues: Mouth sores SR respiratory issues: Shortness of breath SR Cardiovascular issues: Palpitations, Shortness of breath with activity or lying flat, Extreme swelling, Dizzy/lightheaded SR Gastrointestinal issues: Diarrhea, Constipation SR Genitourinary issues: Frequent urination SR Musculoskeletal issues: Joint pain or swelling, Muscle weakness, Muscle pain or cramps, Back or neck pain, Cold hands or feet, Difficulty walking, Bone pain SR Neuro issues: Lightheaded/dizzy, Numbness or tingling, Difficulty balancing SR Hematologic issues: Bleeding/bruising, Swollen lymph nodes SR Endocrine issues: Excessive thirst, Excessive urination Home Medications and Allergies Home Medications Medication Instructions Recorded Confirmed Type magnesium oxide 400 mg PO QDAY #0 12/27/16 02/26/19 History omega 3-agv-gyk-fish oil [Fish Oil] 1,000 mg PO QDAY #0 12/27/16 02/26/19 History Disabled Parking Permit ea #1 03/12/17 02/26/19 Rx cetirizine 10 mg capsule 10 mg PO DAILY 03/04/18 02/26/19 History fluconazole 150 mg tablet 150 mg PO AMINS PRN tab 03/04/18 02/26/19 History fluticasone propionate 50 1 spray INTRANASAL BID PRN gm 03/04/18 02/26/19 History mcg/actuation nasal spray,suspension biotin 2,500 mcg capsule 2,500 mcg PO DAILY 06/13/18 02/26/19 History [VITAMIN D3] 10,000 units PO QDAY #0 10/01/18 02/26/19 History estradiol 10 mcg vaginal tablet 10 mcg VAG 2XW #8 tab 11/01/18 02/26/19 Rx albuterol sulfate HFA 90 2 puff INHALATION Q4-6H PRN #18 11/28/18 02/26/19 Rx mcg/actuation aerosol inhaler gram estradiol 0.01% (0.1 mg/gram) 1 gram VAG 2XW 11/28/18 02/26/19 History vaginal cream meloxicam 15 mg tablet 15 mg PO DAILY #30 tab 11/28/18 02/26/19 Rx methylcellulose (laxative) 500 mg 500 mg PO DAILY 11/28/18 02/26/19 History tablet varicella-zoster glycoE vacc-[id number] 50 mcg IM ONCE #1 each 11/28/18 02/26/19 Rx adj(PF) 50 mcg/0.5 mL IM susp, kit diazepam [Valium] 5 mg PO Q12HR PRN #10 tab 01/06/19 02/26/19 Rx acyclovir 400 mg tablet 400 mg PO TID PRN #60 tab 01/10/19 02/26/19 Rx lorazepam 1 mg tablet 0.5 - 1 mg PO QDAY PRN #30 tab 01/10/19 02/26/19 Rx tramadol 50 mg tablet 50 mg PO TID PRN #42 tab 02/21/19 02/26/19 Rx Vitamin B12 See Rx Instructions .ROUTE .COMPLEX 02/26/19 02/26/19 History diclofenac 1 % topical gel 2 gram TOP QID PRN 02/26/19 02/26/19 History Allergies Allergy/AdvReac Type Severity Reaction Status Date / Time adhesive [ADHESIVE] Allergy Intermediate Blisters Verified 02/26/19 15:07 codeine [CODEINE] Allergy Intermediate AGITATED, Verified 02/26/19 15:07 TACHYCARDIA, DIFFICULTY BREATHING morphine [MORPHINE] Allergy Intermediate hallucinations, Verified 02/26/19 15:07 anxiety, feeling of terror phenytoin [PHENYTOIN] AdvReac Severe Flushing, Verified 02/26/19 15:07 anxiety, red rash Exam Vital signs: Vital Signs Temp Pulse Resp BP Pulse Ox 03/04/19 13:14 98.1 F 85 16 114/72 100 Intake and Output 03/03/19 03/04/19 03/04/19 23:59 07:59 15:59 Other: Weight 59.9 kg Patient Weight 03/04/19 23:59 Weight 59.9 kg - Constitutional positive no acute distress, positive average body habitus - Routine HEENT Exam Head: Present: normocephalic, atraumatic Eye: Present: EOMI, PERRL. Absent: conjunctival icterus, scleral injection ENT: Present: mucous membranes moist, oropharynx clear - Routine Neck Exam Present: supple. Absent: thyromegaly Comments: She does have small bilateral cervical adenopathy all less than a cm. She does have a small left supraclavicular node also less than a cm. She has some small right axillary adenopathy as well. - Routine Respiratory Exam Present: Clear to auscultation bilaterally. Absent: rales, wheezes - Routine Cardiovascular Exam Present: RRR, S1, S2. Absent: murmur - Routine Abdominal Exam Present: soft, normoactive bowel sounds. Absent: tenderness, organomegaly, mass - Routine Extremities Exam Present: joint swelling. Absent: cyanosis, clubbing, edema - Routine Back/Spine Exam Back/Spine: Present: vertebral tenderness - Routine Skin Exam Present: intact. Absent: petechiae, rash - Routine Neurological Exam Present: alert, oriented X3 - Routine Psychiatric Exam Present: normal affect, normal thought process Results - Labs Laboratory Last Values WBC 14.3 X10^3/uL (4.5-11.0) H 02/26/19 13:18 RBC 4.23 X10^6/uL (4.0-5.2) 02/26/19 13:18 Hgb 12.1 g/dL (12.0-16.0) 02/26/19 13:18 Hct 35.6 % (36-46) L 02/26/19 13:18 MCV 84.3 fL (80-100) 02/26/19 13:18 MCH 28.6 PG (26-34) 02/26/19 13:18 MCHC 34.0 % (30-36) 02/26/19 13:18 RDW 13.3 % (11.6-14.8) 02/26/19 13:18 Plt Count 321 X10^3/uL (150-400) 02/26/19 13:18 Neut % (Auto) Not Reportable 02/26/19 13:18 Lymph % (Auto) Not Reportable 02/26/19 13:18 [place] % (Auto) Not Reportable 02/26/19 13:18 Eos % (Auto) Not Reportable 02/26/19 13:18 Baso % (Auto) Not Reportable 02/26/19 13:18 Lymph # (Auto) Not Reportable 02/26/19 13:18 [place] # (Auto) Not Reportable 02/26/19 13:18 Baso # (Auto) Not Reportable 02/26/19 13:18 Total Counted 100 02/26/19 13:18 Seg Neutrophils % 18.0 % (38-70) L 02/26/19 13:18 Band Neutrophils % 5.0 % (3-7) 02/26/19 13:18 Lymphocytes % (Manual) 73.0 % (25-45) H 02/26/19 13:18 Atypical Lymphs % 1.0 % (-0) H 02/26/19 13:18 Monocytes % (Manual) 1.0 % (2-11) L 02/26/19 13:18 Eosinophils % (Manual) 2.0 % (2-4) 02/26/19 13:18 Neutrophils # (Manual) 3289 /uL (9274-3570) 02/26/19 13:18 RBC Morphology Normal morphology 02/26/19 13:18 Sodium 139 mmol/L (137-145) 02/26/19 13:18 Potassium 4.2 mmol/L (3.4-5.1) 02/26/19 13:18 Chloride 101 mmol/L (98-107) 02/26/19 13:18 Carbon Dioxide 28 mmol/L (22-32) 02/26/19 13:18 BUN 15 mg/dL (7-17) 02/26/19 13:18 Creatinine 0.60 mg/dL (0.52-1.04) 02/26/19 13:18 Estimated GFR > 60.0 mL/min (>60) 02/26/19 13:18 BUN/Creatinine Ratio 25.0 (6-22) H 02/26/19 13:18 Glucose 96 mg/dL (70-100) 02/26/19 13:18 Calcium 10.7 mg/dL (8.4-10.2) H 02/26/19 13:18 Total Bilirubin 0.5 mg/dL (0.2-1.3) 02/26/19 13:18 AST 16 IU/L (14-36) 02/26/19 13:18 ALT 16 IU/L (9-52) 02/26/19 13:18 Alkaline Phosphatase 60 U/L (38-126) 02/26/19 13:18 Lactate Dehydrogenase 440 U/L (313-618) 02/26/19 13:18 Total Protein 7.5 g/dL (6.3-8.2) 02/26/19 13:18 Albumin 4.7 g/dL (3.5-5.0) 02/26/19 13:18 Globulin 2.8 g/dL (1.7-4.1) 02/26/19 13:18 Albumin/Globulin Ratio 1.7 (1.0-2.8) 02/26/19 13:18 Ref Test (Refrig) See separate reports 12/10/18 14:39 - Imaging Additional studies: Procedures Repair of rectocele (10/16/11) Assessment and Plan (1) CLL (chronic lymphocytic leukemia) Current visit: Yes Status: Acute As is a 58-year-old woman with CLL. Her white count has increased a little bit over the last few months. Her CT scan does demonstrate some mild splenomegaly as well as mild adenopathy. She does not have anemia or thrombocytopenia. She has a number of joint related symptoms. I do not think that these are related to her CLL. I have encouraged her to keep her appointment with a outside cutter. She will return to clinic here in about 3 months for follow-up.
== END ==
PROVIDERS: PCP Physician Assistant
DX: C91.10 Chronic lymphocytic leukemia of B-cell type not having achieved remission (principal)
CPT/HCPCS: 36415

== ENCOUNTER → 2019-03-24 12:34 | Outpatient (CLI) | payer MEDICARE, MEDICAID, SELFPAY ==
--- NOTE | 2019-03-24 12:35 | DI.MG.S_ITS ---
BILATERAL DIGITAL SCREENING MAMMOGRAM 3D/2D WITH CAD: 03/24/2019 CLINICAL: Routine screening. Comparison is made to exams dated: 08/17/2017 mammogram, 02/25/2016 mammogram, and 01/04/2015 mammogram - [facility]. The tissue of both breasts is heterogeneously dense. This may lower the sensitivity of mammography. Current study was also evaluated with a Computer Aided Detection (CAD) system. No significant masses, calcifications, or other findings are seen in either breast. There has been no significant interval change. IMPRESSION: NEGATIVE There is no mammographic evidence of malignancy. A 1 year screening mammogram is recommended. This exam was interpreted at Station ID: [id number]. NOTE: For mammograms, a report in lay terms will be sent to the patient. Approximately 15% of breast malignancies will not be visualized mammographically. In the management of a palpable breast mass, a negative mammogram must not discourage biopsy of a clinically suspicious lesion. Electronically Signed By: Chari hill/gary:03/24/2019 17:40:29 copy to: MELODY HOGAN copy to: Shama Montgomery MD, [facility] [place] letter sent: Normal Exam ACR BI-RADS Category 1: Negative [id number]
== END ==
PROVIDERS: PCP Physician Assistant; Visit Provider Physician Assistant
DX: Z12.31 Encounter for screening mammogram for malignant neoplasm of breast (principal)
CPT/HCPCS: 77063; 77067

== ENCOUNTER → 2019-04-22 09:00 | Outpatient (CLI) | payer MEDICARE, MEDICAID, SELFPAY ==
--- NOTE | 2019-04-22 | DI.CT.S_ITS ---
PROCEDURE: CT SOFT TISSUE NECK W CON INDICATIONS: weight loss TECHNIQUE: After the administration of intravenous contrast, 3.0 mm axial sections acquired from the sella to the aortic arch. Additional oblique axial 3.0 mm sections acquired through the pharynx. 3 mm thick coronal and sagittal reformats were generated. For radiation dose reduction, the following was used: automated exposure control. COMPARISON: [facility], CT, CT SOFT TISSUE NECK W CON, 01/03/2019, 13:03. FINDINGS: Image quality: Excellent. Lymph nodes: Multiple bilateral level I and level II neck lymph nodes are noted ranging in size from 1.1-1.3 cm short axis. Enlarged left level IV neck lymph node is noted which measures 1.2 cm in short axis. Mildly enlarged bilateral supraclavicular lymph nodes are noted measuring 1-1.1 cm in short axis. Multiple prominent bilateral level III and level V neck lymph nodes are noted which do not meet pathologic size criteria. Vessels: Visualized vasculature appears patent. Neck spaces: The oropharynx, nasopharynx, and pharynx demonstrate no mucosal lesions. The vocal cords, false vocal cords, pyriform sinuses, epiglottis, vallecula, and tongue base all appear normal. Extramucosal spaces appear unremarkable. Glands: The parotid and submandibular glands appear normal. Thyroid gland is within normal limits. Miscellaneous: Visualized brain and orbits appear normal. Lung apices appear clear. Superficial soft tissues appear normal. Bones: Postsurgical changes compatible with prior right temporal craniotomy noted. No suspicious bony lesions. Spine degenerative disc disease and facet arthropathy. Visualized sinuses and mastoids appear unremarkable. IMPRESSION: 1. Bilateral level I, level II, left level IV and bilateral supraclavicular lymphadenopathy. Differential diagnosis includes lymphoma and metastatic disease. 2. No mucosal based masses. 3. Cervical spine degenerative disease and facet arthropathy. 4. Prior right temporal bone craniotomy. Dictated by: Cindy Steward MD, PhD on 04/22/2019 at 16:41 Approved by: Cindy Steward MD, PhD on 04/22/2019 at 16:49
--- NOTE | 2019-04-22 09:35 | DI.CT.S_ITS ---
PROCEDURE: CT CHEST ABDOMEN W CON INDICATIONS: weight loss TECHNIQUE: After the administration of oral contrast and intravenous contrast, 5 mm thick sections acquired from the lung apices to the iliac crests. 5 mm coronal and sagittal reformats were performed, with additional 7 mm coronal MIP reformats through the lungs. For radiation dose reduction, the following was used: automated exposure control, adjustment of mA and/or kV according to patient size. COMPARISON: [facility], CT, ABDOMEN WITH CONTRAST, 10/13/2013, 10:26. [facility], CT, CT CHEST ABD PEL W CON, 01/03/2019, 13:03. FINDINGS: Image quality: Excellent. CHEST: Lungs and pleura: Platelike atelectasis is present at the left lung base. A 3 mm pulmonary nodule is present in the right upper lobe (series 3, image 74). No pleural effusions or pneumothorax. Central and peripheral airways are patent and normal in caliber. Mediastinum: Heart size is normal. No pericardial effusion. No mediastinal or hilar adenopathy by size criteria. Thoracic aorta and central pulmonary arteries are normal in size. Scattered atheromatous calcifications are present within the aortic arch. Esophagus is normal in caliber. No hiatal hernia. Chest wall: There are multiple bilateral markedly enlarged axillary lymph nodes. For example, the largest left axillary lymph node measures 1.4 cm in short axis diameter. These have increased in size and compared with prior CT dated 01/03/19. Thyroid gland is unremarkable. ABDOMEN: Solid organs: Liver is normal in size and enhancement. Right lower lobe and left upper lobe hypodense lesions within the liver are unchanged when compared with the study from 10/13/13 suggesting stable hepatic hemangiomas. An unchanged hepatic cyst is present within the segment . Gallbladder is unremarkable. Biliary system is non dilated. Pancreas enhances normally. Spleen is normal in size and enhancement. No adrenal nodules. Kidneys are normal in size and enhancement, without hydronephrosis. Peritoneum and bowel: Bowel loops demonstrate normal wall thickness and caliber. The appendix is thin walled and gas filled. No free fluid or air. Nodes and vessels: There multiple enlarged retroperitoneal lymph nodes. For example, a left periaortic lymph node now measures 9 mm in diameter and previously measured 6 mm in diameter (series 2, image 83). Aorta and inferior vena cava are normal in caliber. There are scattered atheromatous calcifications throughout the aorta and iliac arteries bilaterally. Bones: No suspicious bony lesions. No vertebral body compression fractures. There are limbic vertebral bodies at L3-4 and L4-5. There are prominent subcentimeter inguinal lymph nodes bilaterally which are slightly increased in size when compared with the prior CT dated 01/03/19. No inguinal hernias. Bladder is thin-walled and fluid filled. Uterus is not visualized and is presumably surgically absent. Miscellaneous: No ventral hernias. IMPRESSION: 1. Markedly enlarged bilateral axillary lymph nodes, increased when compared with the CT dated 01/03/19 and increased retroperitoneal adenopathy. These findings are worrisome for a hematologic neoplasm such as lymphoma. If clinically indicated, an axillary lymph node may be amenable to percutaneous ultrasound-guided biopsy. 2. Normal appendix. Dictated by: Evelia Taveras M.D. on 04/22/2019 at 13:01 Approved by: Evelia Taveras M.D. on 04/22/2019 at 14:46
== END ==
PROVIDERS: PCP Physician Assistant; Visit Provider Internal Medicine Hematology & Oncology
DX: R59.0 Localized enlarged lymph nodes (principal); M47.812 Spondylosis without myelopathy or radiculopathy, cervical region
CPT/HCPCS: 70491; 71260; 74160; Q9967

== ENCOUNTER → 2019-04-23 12:11 | Outpatient (CLI) | payer MEDICARE, MEDICAID, SELFPAY ==
[2019-04-23 12:52] LABS: Hematocrit 37.4 % (36-46); Hemoglobin 12.6 g/dL (12.0-16.0); Mean Corpuscular HGB Conc 33.8 % (30-36); Mean Corpuscular Hemoglobin 29.1 PG (26-34); Mean Corpuscular Volume 86.3 fL (80-100); Platelet Count 324 X10^3/uL (150-400); Red Blood Cell Count 4.34 X10^6/uL (4.0-5.2); Red Cell Distribution Width 14.1 % (11.6-14.8); White Blood Cell Count 21.6 X10^3/uL (4.5-11.0)
[2019-04-23 12:57] LABS: Add Manual Diff / Slide Review YES
[2019-04-23 13:11] LABS: Erythrocyte Sedimentation Rate 12 MM/HR (0-20)
[2019-04-23 13:17] LABS: Alanine Aminotransferase 15 IU/L (9-52); Albumin 4.6 g/dL (3.5-5.0); Albumin Globulin Ratio 1.6 (1.0-2.8); Alkaline Phosphatase 50 U/L (38-126); Aspartate Aminotransferase 16 IU/L (14-36); BUN Creatinine Ratio 32.5 (6-22); Bilirubin Total 0.5 mg/dL (0.2-1.3); Blood Urea Nitrogen 13 mg/dL (7-17); Carbon Dioxide 25 mmol/L (22-32); Chloride 100 mmol/L (98-107); Estimated Glomerular Filt Rate > 60.0 mL/min (>60); Globulin 2.9 g/dL (1.7-4.1); Glucose 82 mg/dL (70-100); HEMOLYSIS 18 (0-50); Potassium 4.4 mmol/L (3.4-5.1); Sodium 137 mmol/L (137-145); Total Protein 7.5 g/dL (6.3-8.2)
[2019-04-23 13:21] LABS: High Sensitivity CRP - Cardiac 1.1 mg/L (1.0-3.0)
[2019-04-23 13:39] LABS: Neutrophils Absolute Manual 5832 /uL (3000-5900); Total Cells Counted 100
[2019-04-23 13:40] LABS: Platelet Estimate Adequate on smear; RBC Morphology Normal Morphology; Smudge Cells 1+
== END ==
PROVIDERS: PCP Physician Assistant; Visit Provider Internal Medicine Rheumatology
DX: M06.9 Rheumatoid arthritis, unspecified (principal)
CPT/HCPCS: 36415; 80053; 85025; 85651; 86140

== ENCOUNTER → 2019-05-21 10:34 | Outpatient (CLI) | payer MEDICARE, MEDICAID, SELFPAY | PROVIDERS: PCP Physician Assistant; Visit Provider Hospitalist | DX: B96.89 Other specified bacterial agents as the cause of diseases classified elsewhere (principal); N76.0 Acute vaginitis | CPT/HCPCS: 87210 ==

== ENCOUNTER → 2019-07-09 15:48 | Outpatient (CLI) | payer MEDICARE, MEDICAID, SELFPAY ==
[2019-07-09 16:19] LABS: Hematocrit 37.8 % (36-46); Hemoglobin 12.7 g/dL (12.0-16.0); Mean Corpuscular HGB Conc 33.7 % (30-36); Mean Corpuscular Hemoglobin 30.2 PG (26-34); Mean Corpuscular Volume 89.5 fL (80-100); Platelet Count 283 X10^3/uL (150-400); Red Blood Cell Count 4.22 X10^6/uL (4.0-5.2); Red Cell Distribution Width 14.6 % (11.6-14.8)
[2019-07-09 16:21] LABS: Add Manual Diff / Slide Review YES
[2019-07-09 16:35] LABS: Alanine Aminotransferase 17 IU/L (<35); Albumin 4.8 g/dL (3.5-5.0); Albumin Globulin Ratio 1.8 (1.0-2.8); Alkaline Phosphatase 53 U/L (38-126); Aspartate Aminotransferase 21 IU/L (14-36); BUN Creatinine Ratio 26.7 (6-22); Bilirubin Total 0.5 mg/dL (0.2-1.3); Blood Urea Nitrogen 16 mg/dL (7-17); Calcium 10.6 mg/dL (8.4-10.2); Carbon Dioxide 27 mmol/L (22-32); Chloride 100 mmol/L (98-107); Estimated Glomerular Filt Rate > 60.0 mL/min (>60); Globulin 2.6 g/dL (1.7-4.1); Glucose 85 mg/dL (70-100); HEMOLYSIS < 15 (0-50); Potassium 3.9 mmol/L (3.4-5.1); Sodium 137 mmol/L (137-145); Total Protein 7.4 g/dL (6.3-8.2)
[2019-07-09 16:38] LABS: High Sensitivity CRP - Cardiac 0.6 mg/L (1.0-3.0)
[2019-07-09 17:06] LABS: Erythrocyte Sedimentation Rate 8 MM/HR (0-20)
[2019-07-09 17:24] LABS: Neutrophils Absolute Manual 2880 /uL (3000-5900); RBC Morphology Normal Morphology; Smudge Cells 2+; Total Cells Counted 100
== END ==
PROVIDERS: Family Provider Internal Medicine Hematology & Oncology; PCP Physician Assistant; Visit Provider Internal Medicine Rheumatology
DX: M06.9 Rheumatoid arthritis, unspecified (principal); Z79.899 Other long term (current) drug therapy
CPT/HCPCS: 36415; 80053; 85025; 85651; 86140

== ENCOUNTER → 2019-07-19 13:33 | Outpatient (ROUT) | payer MEDICARE, MEDICAID, SELFPAY ==
[2019-07-19 13:45] LABS: Occult Blood 1 Negative (Negative); Occult Blood 2 Negative (Negative); Occult Blood 3 Negative (Negative); Sample 1 Time N; Sample 2 time N; Sample 3 time N
== END ==
PROVIDERS: Family Provider Internal Medicine Hematology & Oncology; PCP Physician Assistant; Visit Provider Nurse Practitioner
DX: K92.1 Melena (principal); R10.9 Unspecified abdominal pain; R19.4 Change in bowel habit; R19.5 Other fecal abnormalities
CPT/HCPCS: 82270

== ENCOUNTER → 2019-07-21 07:16 | Outpatient (CLI) | payer MEDICARE, MEDICAID, SELFPAY ==
--- NOTE | 2019-07-21 07:18 | DI.US.S_ITS ---
PROCEDURE: US ABDOMEN COMPLETE INDICATIONS: BLOODY STOOL TECHNIQUE: Real-time scanning was performed of the abdominal and retroperitoneal organs, with image documentation. COMPARISON: [facility], CT, ABDOMEN WITH CONTRAST, 10/13/2013, 10:26. [facility], CT, CT CHEST ABDOMEN W CON, 04/22/2019, 10:19. [facility], US, US ABDOMEN COMPLETE, 12/09/2018, 8:25. FINDINGS: Liver: Liver is normal in size and homogeneous in echotexture. Solitary hyperechoic focus present within the inferior right hepatic lobe measuring 1.5 x 1.2 x 1.2 cm. Gallbladder: No gallstones identified. Normal gallbladder wall. No pericholecystic fluid. Negative sonographic Garcia sign. Biliary ducts: Intrahepatic bile ducts are non-dilated. Extrahepatic bile duct caliber measures 6.2 mm. Normal is 6-7 mm or less in diameter, or 10 mm or less post-cholecystectomy. Pancreas: Visualized portions of the pancreas are sonographically normal. Spleen: Spleen is normal in size and homogeneous in echotexture. Kidneys: Kidneys are normal in size and echotexture. Right kidney measures 11.1 cm long; left kidney measures 12.2 cm long. No hydronephrosis or nephrolithiasis. No solid masses. Aorta: Visualized aorta is normal in caliber at less than 3 cm. Iliacs: Proximal common iliac arteries are normal in caliber at less than 2.5 cm. IVC: Intrahepatic inferior vena cava is patent. Miscellaneous: No free abdominal fluid. IMPRESSION: Hemangioma within the right hepatic lobe unchanged dating back to CT scan dated 10/13/2013. No source for bloody stool identified. Dictated by: Suman Rayo Guanako Interpreted: Frankie Herrera MD on 07/21/2019 at 9:02 Approved by: Frankie Herrera M.D. on 07/21/2019 at 12:13
== END ==
PROVIDERS: Family Provider Internal Medicine Hematology & Oncology; PCP Physician Assistant; Visit Provider Nurse Practitioner
DX: K92.1 Melena (principal); D18.09 Hemangioma of other sites; R10.9 Unspecified abdominal pain; R19.4 Change in bowel habit
CPT/HCPCS: 76700

== ENCOUNTER → 2019-11-10 12:46 | Outpatient (CLI) | payer MEDICARE, MEDICAID, SELFPAY ==
[2019-11-10 13:14] LABS: Hematocrit 39.1 % (36-46); Hemoglobin 12.9 g/dL (12.0-16.0); Mean Corpuscular HGB Conc 33.1 % (30-36); Mean Corpuscular Hemoglobin 30.3 PG (26-34); Mean Corpuscular Volume 91.5 fL (80-100); Platelet Count 317 X10^3/uL (150-400); Red Blood Cell Count 4.27 X10^6/uL (4.0-5.2); Red Cell Distribution Width 14.7 % (11.6-14.8)
[2019-11-10 13:15] LABS: Add Manual Diff / Slide Review YES
[2019-11-10 14:00] LABS: Neutrophils Absolute Manual 3790 /uL (3000-5900); Total Cells Counted 100
[2019-11-10 14:03] LABS: Smudge Cells 3+; White Blood Cell Count 37.9 X10^3/uL (4.5-11.0)
== END ==
PROVIDERS: Family Provider Internal Medicine Hematology & Oncology; PCP Physician Assistant; Referring Provider Internal Medicine Hematology & Oncology; Visit Provider Internal Medicine Hematology & Oncology
DX: C91.10 Chronic lymphocytic leukemia of B-cell type not having achieved remission (principal)
CPT/HCPCS: 36415; 85025

== ENCOUNTER → 2019-12-25 15:10 | Outpatient (CLI) | payer MEDICARE, MEDICAID, SELFPAY ==
[2019-12-25 17:02] LABS: Hematocrit 36.7 % (36-46); Hemoglobin 12.5 g/dL (12.0-16.0); Mean Corpuscular HGB Conc 34.1 % (30-36); Mean Corpuscular Hemoglobin 30.9 PG (26-34); Mean Corpuscular Volume 90.4 fL (80-100); Platelet Count 273 X10^3/uL (150-400); Red Blood Cell Count 4.06 X10^6/uL (4.0-5.2); Red Cell Distribution Width 14.9 % (11.6-14.8)
[2019-12-25 17:06] LABS: Add Manual Diff / Slide Review YES
[2019-12-25 17:37] LABS: White Blood Cell Count 35.9 X10^3/uL (4.5-11.0)
[2019-12-25 17:41] LABS: Neutrophils Absolute Manual 2872 /uL (3000-5900); RBC Morphology Normal Morphology; Total Cells Counted 100
[2019-12-25 17:46] LABS: Alanine Aminotransferase 32 IU/L (<35); Albumin 4.7 g/dL (3.5-5.0); Albumin Globulin Ratio 1.7 (1.0-2.8); Alkaline Phosphatase 41 U/L (38-126); Aspartate Aminotransferase 28 IU/L (14-36); BUN Creatinine Ratio 15.9 (6-22); Bilirubin Total 0.3 mg/dL (0.2-1.3); Blood Urea Nitrogen 14 mg/dL (7-17); Calcium 10.2 mg/dL (8.4-10.2); Carbon Dioxide 27 mmol/L (22-32); Chloride 101 mmol/L (98-107); Estimated Glomerular Filt Rate > 60.0 mL/min (>60); Globulin 2.8 g/dL (1.7-4.1); Glucose 121 mg/dL (70-100); HEMOLYSIS < 15 (0-50); Lactate Dehydrogenase 362 U/L (313-618); Potassium 4.3 mmol/L (3.4-5.1); Sodium 136 mmol/L (137-145); Total Protein 7.5 g/dL (6.3-8.2); Uric Acid 3.6 mg/dL (2.5-6.2)
[2019-12-25 17:55] LABS: C-Reactive Protein Quant < 0.5 mg/dL (<1.0)
== END ==
PROVIDERS: Family Provider Internal Medicine Hematology & Oncology; PCP Physician Assistant; Referring Provider Internal Medicine Rheumatology; Visit Provider Internal Medicine Rheumatology
DX: C91.10 Chronic lymphocytic leukemia of B-cell type not having achieved remission (principal); M05.79 Rheumatoid arthritis with rheumatoid factor of multiple sites without organ or systems involvement
CPT/HCPCS: 36415; 80053; 83615; 84550; 85025; 86140

== ENCOUNTER → 2020-06-24 12:14 | Outpatient (CLI) | payer MEDICARE, MEDICAID, SELFPAY ==
[2020-06-24 13:56] LABS: Add Manual Diff / Slide Review NO; Basophils Absolute Auto 0 /uL (0-100); Basophils Percent Auto 0.6 % (0-2); Eosinophils Absolute Auto 0 /uL (0-450); Eosinophils Percent Auto 0.3 % (2-4); Hematocrit 36.6 % (36-46); Hemoglobin 12.7 g/dL (12.0-16.0); Lymphocytes Absolute Auto 900 /uL (1100-4500); Mean Corpuscular HGB Conc 34.6 % (30-36); Mean Corpuscular Hemoglobin 30.8 PG (26-34); Mean Corpuscular Volume 89.1 fL (80-100); Monocytes Absolute Auto 300 /uL (0-900); Monocytes Percent Auto 10.4 % (3-14); Neutrophils Absolute Auto 2100 /uL (1500-7000); Neutrophils Percent Auto 61.7 % (50-75); Platelet Count 276 X10^3/uL (150-400); Red Blood Cell Count 4.11 X10^6/uL (4.0-5.2); Red Cell Distribution Width 14.1 % (11.6-14.8); White Blood Cell Count 3.3 X10^3/uL (4.5-11.0)
[2020-06-24 14:00] LABS: BUN Creatinine Ratio 27.8 (6-22); Blood Urea Nitrogen 15 mg/dL (7-17); Calcium 10.3 mg/dL (8.4-10.2); Carbon Dioxide 31 mmol/L (22-32); Chloride 103 mmol/L (98-107); Estimated Glomerular Filt Rate > 60.0 mL/min (>60); Glucose 86 mg/dL (70-100); HEMOLYSIS < 15 (0-50); Lactate Dehydrogenase 644 U/L (313-618); Potassium 4.3 mmol/L (3.4-5.1); Sodium 138 mmol/L (137-145); Uric Acid 3.3 mg/dL (2.5-6.2)
== END ==
PROVIDERS: Family Provider Internal Medicine Hematology & Oncology; PCP Physician Assistant; Referring Provider Internal Medicine Hematology & Oncology; Visit Provider Internal Medicine Hematology & Oncology
DX: C91.10 Chronic lymphocytic leukemia of B-cell type not having achieved remission (principal)
CPT/HCPCS: 36415; 80048; 83615; 84550; 85025

== ENCOUNTER → 2020-07-22 12:16 | Outpatient (CLI) | payer MEDICARE, MEDICAID, SELFPAY ==
[2020-07-23 13:09] LABS: Candida species Negative (Negative); Gardnerella vaginalis Positive (Negative); Trichomoas vaginalis Negative (Negative)
== END ==
PROVIDERS: Family Provider Internal Medicine Hematology & Oncology; PCP Physician Assistant; Referring Provider Obstetrics & Gynecology; Visit Provider Obstetrics & Gynecology
DX: N89.8 Other specified noninflammatory disorders of vagina (principal)
CPT/HCPCS: 87480; 87510; 87660

== ENCOUNTER → 2020-08-12 16:21 | Outpatient (CLI) | payer MEDICARE, MEDICAID, SELFPAY ==
[2020-08-12 16:46] LABS: Add Manual Diff / Slide Review NO; Basophils Absolute Auto 0 /uL (0-100); Basophils Percent Auto 0.9 % (0-2); Eosinophils Absolute Auto 0 /uL (0-450); Eosinophils Percent Auto 0.3 % (2-4); Hematocrit 35.2 % (36-46); Hemoglobin 12.3 g/dL (12.0-16.0); Lymphocytes Absolute Auto 700 /uL (1100-4500); Lymphocytes Percent Auto 25.8 % (25-40); Mean Corpuscular Volume 88.6 fL (80-100); Monocytes Absolute Auto 400 /uL (0-900); Monocytes Percent Auto 14.9 % (3-14); Neutrophils Absolute Auto 1700 /uL (1500-7000); Neutrophils Percent Auto 58.1 % (50-75); Platelet Count 227 X10^3/uL (150-400); Red Blood Cell Count 3.97 X10^6/uL (4.0-5.2); Red Cell Distribution Width 14.4 % (11.6-14.8); White Blood Cell Count 2.9 X10^3/uL (4.5-11.0)
[2020-08-12 16:55] LABS: Alanine Aminotransferase 17 IU/L (<35); Albumin 4.6 g/dL (3.5-5.0); Albumin Globulin Ratio 1.4 (1.0-2.8); Alkaline Phosphatase 49 U/L (38-126); Aspartate Aminotransferase 23 IU/L (14-36); BUN Creatinine Ratio 27.6 (6-22); Bilirubin Total 0.4 mg/dL (0.2-1.3); Blood Urea Nitrogen 16 mg/dL (7-17); Carbon Dioxide 31 mmol/L (22-32); Chloride 99 mmol/L (98-107); Estimated Glomerular Filt Rate > 60.0 mL/min (>60); Globulin 3.2 g/dL (1.7-4.1); Glucose 95 mg/dL (70-100); HEMOLYSIS < 15 (0-50); Lactate Dehydrogenase 585 U/L (313-618); Potassium 4.1 mmol/L (3.4-5.1); Sodium 133 mmol/L (137-145); Total Protein 7.8 g/dL (6.3-8.2)
== END ==
PROVIDERS: Family Provider Internal Medicine Hematology & Oncology; PCP Physician Assistant; Referring Provider Internal Medicine Hematology & Oncology; Visit Provider Internal Medicine Hematology & Oncology
DX: C91.10 Chronic lymphocytic leukemia of B-cell type not having achieved remission (principal)
CPT/HCPCS: 36415; 80053; 83615; 85025

== ENCOUNTER → 2020-09-13 15:44 | Outpatient (CLI) | payer MEDICARE, MEDICAID, SELFPAY ==
[2020-09-13 16:41] LABS: COVID19 -Nasal RAPID Negative (Negative)
== END ==
PROVIDERS: Family Provider Internal Medicine Hematology & Oncology; PCP Nurse Practitioner; Visit Provider Physician Assistant
DX: Z01.812 Encounter for preprocedural laboratory examination (principal); Z20.822 Contact with and (suspected) exposure to COVID-19
CPT/HCPCS: 87635; C9803

== ENCOUNTER → 2020-10-01 15:17 | Outpatient (CLI) | payer MEDICARE, MEDICAID, SELFPAY ==
[2020-10-01 15:49] LABS: COVID19 -Nasal RAPID Negative (Negative)
== END ==
PROVIDERS: Family Provider Internal Medicine Hematology & Oncology; PCP Nurse Practitioner; Visit Provider Nurse Practitioner Family
DX: Z20.822 Contact with and (suspected) exposure to COVID-19 (principal)
CPT/HCPCS: 87635; C9803

== ENCOUNTER → 2020-10-14 10:41 | Outpatient (CLI) | payer MEDICARE, MEDICAID, SELFPAY ==
[2020-10-14 11:53] LABS: Add Manual Diff / Slide Review NO; Basophils Absolute Auto 0 /uL (0-100); Basophils Percent Auto 0.4 % (0-2); Eosinophils Absolute Auto 0 /uL (0-450); Eosinophils Percent Auto 0.1 % (2-4); Hematocrit 38.7 % (36-46); Hemoglobin 13.3 g/dL (12.0-16.0); Lymphocytes Absolute Auto 600 /uL (1100-4500); Lymphocytes Percent Auto 26.6 % (25-40); Mean Corpuscular HGB Conc 34.4 % (30-36); Mean Corpuscular Hemoglobin 29.8 PG (26-34); Mean Corpuscular Volume 86.5 fL (80-100); Monocytes Absolute Auto 300 /uL (0-900); Monocytes Percent Auto 14.1 % (3-14); Neutrophils Absolute Auto 1400 /uL (1500-7000); Neutrophils Percent Auto 58.8 % (50-75); Platelet Count 205 X10^3/uL (150-400); Red Blood Cell Count 4.47 X10^6/uL (4.0-5.2); Red Cell Distribution Width 13.1 % (11.6-14.8); White Blood Cell Count 2.4 X10^3/uL (4.5-11.0)
[2020-10-14 12:09] LABS: Alanine Aminotransferase 16 IU/L (<35); Albumin 4.7 g/dL (3.5-5.0); Albumin Globulin Ratio 1.4 (1.0-2.8); Alkaline Phosphatase 50 U/L (38-126); Aspartate Aminotransferase 21 IU/L (14-36); BUN Creatinine Ratio 29.8 (6-22); Bilirubin Total 0.7 mg/dL (0.2-1.3); Blood Urea Nitrogen 17 mg/dL (7-17); Calcium 10.2 mg/dL (8.4-10.2); Carbon Dioxide 30 mmol/L (22-32); Chloride 100 mmol/L (98-107); Estimated Glomerular Filt Rate > 60.0 mL/min (>60); Globulin 3.3 g/dL (1.7-4.1); Glucose 92 mg/dL (80-110); HEMOLYSIS < 15 (0-50); Potassium 4.4 mmol/L (3.4-5.1); Sodium 134 mmol/L (137-145)
== END ==
PROVIDERS: Family Provider Internal Medicine Hematology & Oncology; PCP Nurse Practitioner; Referring Provider Physician Assistant Medical; Visit Provider Physician Assistant Medical
DX: C91.10 Chronic lymphocytic leukemia of B-cell type not having achieved remission (principal)
CPT/HCPCS: 36415; 80053; 85025

== ENCOUNTER → 2020-11-01 08:50 | Outpatient (CLI) | payer MEDICARE, MEDICAID, SELFPAY ==
[2020-11-01 11:53] LABS: COVID19 -Nasal RAPID Negative (Negative)
== END ==
PROVIDERS: Family Provider Internal Medicine Hematology & Oncology; PCP Nurse Practitioner; Visit Provider Family Medicine Sleep Medicine
DX: Z20.822 Contact with and (suspected) exposure to COVID-19 (principal)
CPT/HCPCS: 87635; C9803

== ENCOUNTER → 2021-02-01 11:19 | Outpatient (CLI) | payer MEDICARE, MEDICAID, SELFPAY ==
[2021-02-01 12:01] LABS: Add Manual Diff / Slide Review NO; Basophils Absolute Auto 0 /uL (0-100); Basophils Percent Auto 0.2 % (0-2); Eosinophils Absolute Auto 0 /uL (0-450); Eosinophils Percent Auto 0.2 % (2-4); Hematocrit 34.2 % (36-46); Hemoglobin 12.1 g/dL (12.0-16.0); Lymphocytes Absolute Auto 500 /uL (1100-4500); Lymphocytes Percent Auto 18.3 % (25-40); Mean Corpuscular HGB Conc 35.5 % (30-36); Mean Corpuscular Hemoglobin 31.5 PG (26-34); Mean Corpuscular Volume 88.8 fL (80-100); Monocytes Absolute Auto 400 /uL (0-900); Monocytes Percent Auto 13.4 % (3-14); Neutrophils Absolute Auto 1900 /uL (1500-7000); Neutrophils Percent Auto 67.9 % (50-75); Platelet Count 205 X10^3/uL (150-400); Red Blood Cell Count 3.85 X10^6/uL (4.0-5.2); White Blood Cell Count 2.9 X10^3/uL (4.5-11.0)
[2021-02-01 12:20] LABS: Alanine Aminotransferase 16 IU/L (<35); Albumin 4.4 g/dL (3.5-5.0); Albumin Globulin Ratio 1.8 (1.0-2.8); Alkaline Phosphatase 48 U/L (38-126); Aspartate Aminotransferase 20 IU/L (14-36); BUN Creatinine Ratio 29.8 (6-22); Bilirubin Total 0.6 mg/dL (0.2-1.3); Bilirubin Unconjugated 0.6 mg/dL (0.0-1.1); Blood Urea Nitrogen 14 mg/dL (7-17); Calcium 10.1 mg/dL (8.4-10.2); Carbon Dioxide 25 mmol/L (22-32); Chloride 103 mmol/L (98-107); Estimated Glomerular Filt Rate > 60.0 mL/min (>60); Globulin 2.5 g/dL (1.7-4.1); Glucose 87 mg/dL (80-110); HEMOLYSIS < 15 (0-50); Lactate Dehydrogenase 405 U/L (313-618); Potassium 4.2 mmol/L (3.4-5.1); Sodium 135 mmol/L (137-145); Total Protein 6.9 g/dL (6.3-8.2)
== END ==
PROVIDERS: Family Provider Internal Medicine Hematology & Oncology; PCP Nurse Practitioner; Referring Provider Internal Medicine Hematology & Oncology; Visit Provider Internal Medicine Hematology & Oncology
DX: C91.10 Chronic lymphocytic leukemia of B-cell type not having achieved remission (principal)
CPT/HCPCS: 36415; 80048; 80076; 83615; 85025

== ENCOUNTER → 2021-03-23 10:57 | Outpatient (CLI) | payer MEDICARE, MEDICAID, SELFPAY ==
[2021-03-23 12:02] LABS: HEMOLYSIS < 15 (0-50); Potassium 4.3 mmol/L (3.4-5.1)
[2021-03-23 12:03] LABS: Alanine Aminotransferase 16 IU/L (<35); Albumin 4.7 g/dL (3.5-5.0); Albumin Globulin Ratio 1.6 (1.0-2.8); Alkaline Phosphatase 47 U/L (38-126); Aspartate Aminotransferase 24 IU/L (14-36); BUN Creatinine Ratio 21.4 (6-22); Blood Urea Nitrogen 12 mg/dL (7-17); Calcium 10.3 mg/dL (8.4-10.2); Carbon Dioxide 28 mmol/L (22-32); Chloride 102 mmol/L (98-107); Cholesterol 289 mg/dL (140-199); Estimated Glomerular Filt Rate > 60.0 mL/min (>60); Glucose 94 mg/dL (80-110); HDL Cholesterol 57 mg/dL (40-60); LDL Cholesterol Calculated 210 mg/dL (<100); Sodium 137 mmol/L (137-145); Total Protein 7.7 g/dL (6.3-8.2); Triglycerides 111 mg/dL (35-150)
[2021-03-23 19:34] LABS: HIV 1 & 2 Ab/Ag 4th Gen Combo NEGATIVE (NEGATIVE); Hep C Virus Ab w/Reflex Quant NEGATIVE s/c (NEGATIVE)
== END ==
PROVIDERS: Family Provider Internal Medicine Hematology & Oncology; PCP Internal Medicine; Referring Provider Internal Medicine; Visit Provider Internal Medicine
DX: E78.5 Hyperlipidemia, unspecified (principal); Z11.4 Encounter for screening for human immunodeficiency virus [HIV]
CPT/HCPCS: 36415; 80053; 80061; 86803; 87389

== ENCOUNTER → 2021-05-05 13:39 | Outpatient (CLI) | payer MEDICARE, MEDICAID, SELFPAY ==
[2021-05-05 14:19] LABS: Add Manual Diff / Slide Review NO; Basophils Absolute Auto 0 /uL (0-100); Basophils Percent Auto 1.2 % (0-2); Eosinophils Absolute Auto 0 /uL (0-450); Eosinophils Percent Auto 1.5 % (2-4); Hemoglobin 12.5 g/dL (12.0-16.0); Lymphocytes Absolute Auto 600 /uL (1100-4500); Lymphocytes Percent Auto 17.9 % (25-40); Mean Corpuscular HGB Conc 34.8 % (30-36); Mean Corpuscular Hemoglobin 31.7 PG (26-34); Mean Corpuscular Volume 91.1 fL (80-100); Monocytes Absolute Auto 300 /uL (0-900); Monocytes Percent Auto 9.4 % (3-14); Neutrophils Absolute Auto 2200 /uL (1500-7000); Platelet Count 233 X10^3/uL (150-400); Red Blood Cell Count 3.95 X10^6/uL (4.0-5.2); Red Cell Distribution Width 13.4 % (11.6-14.8); White Blood Cell Count 3.2 X10^3/uL (4.5-11.0)
[2021-05-05 14:32] LABS: Alanine Aminotransferase 17 IU/L (<35); Albumin 4.5 g/dL (3.5-5.0); Albumin Globulin Ratio 1.6 (1.0-2.8); Alkaline Phosphatase 46 U/L (38-126); Aspartate Aminotransferase 25 IU/L (14-36); BUN Creatinine Ratio 26.4 (6-22); Bilirubin Total 0.6 mg/dL (0.2-1.3); Bilirubin Unconjugated 0.4 mg/dL (0.0-1.1); Blood Urea Nitrogen 14 mg/dL (7-17); Carbon Dioxide 27 mmol/L (22-32); Chloride 106 mmol/L (98-107); Estimated Glomerular Filt Rate > 60.0 mL/min (>60); Globulin 2.8 g/dL (1.7-4.1); Glucose 98 mg/dL (80-110); HEMOLYSIS 20 (0-50); Lactate Dehydrogenase 454 U/L (313-618); Potassium 3.9 mmol/L (3.4-5.1); Sodium 139 mmol/L (137-145); Total Protein 7.3 g/dL (6.3-8.2)
== END ==
PROVIDERS: Family Provider Internal Medicine Hematology & Oncology; PCP Internal Medicine; Referring Provider Internal Medicine Hematology & Oncology; Visit Provider Internal Medicine Hematology & Oncology
DX: C91.10 Chronic lymphocytic leukemia of B-cell type not having achieved remission (principal)
CPT/HCPCS: 36415; 80048; 80076; 83615; 85025

== ENCOUNTER → 2021-09-28 14:23 | Outpatient (CLI) | payer MEDICARE, MEDICAID, SELFPAY ==
[2021-09-28 14:40] LABS: Add Manual Diff / Slide Review NO; Basophils Absolute Auto 0 /uL (0-100); Basophils Percent Auto 1.2 % (0-2); Eosinophils Absolute Auto 100 /uL (0-450); Eosinophils Percent Auto 1.9 % (2-4); Hematocrit 38.1 % (36-46); Hemoglobin 13.3 g/dL (12.0-16.0); Lymphocytes Absolute Auto 900 /uL (1100-4500); Lymphocytes Percent Auto 21.3 % (25-40); Mean Corpuscular HGB Conc 35.1 % (30-36); Mean Corpuscular Hemoglobin 30.6 PG (26-34); Mean Corpuscular Volume 87.2 fL (80-100); Monocytes Absolute Auto 300 /uL (0-900); Monocytes Percent Auto 7.2 % (3-14); Neutrophils Absolute Auto 2900 /uL (1500-7000); Neutrophils Percent Auto 68.4 % (50-75); Platelet Count 253 X10^3/uL (150-400); Red Blood Cell Count 4.37 X10^6/uL (4.0-5.2); Red Cell Distribution Width 14.1 % (11.6-14.8); White Blood Cell Count 4.3 X10^3/uL (4.5-11.0)
[2021-09-28 15:01] LABS: Alanine Aminotransferase 25 IU/L (<35); Albumin Globulin Ratio 1.6 (1.0-2.8); Alkaline Phosphatase 50 U/L (38-126); Aspartate Aminotransferase 27 IU/L (14-36); BUN Creatinine Ratio 15.6 (6-22); Bilirubin Total 0.5 mg/dL (0.2-1.3); Blood Urea Nitrogen 10 mg/dL (7-17); Calcium 10.5 mg/dL (8.4-10.2); Carbon Dioxide 33 mmol/L (22-32); Chloride 102 mmol/L (98-107); Estimated Glomerular Filt Rate > 60.0 mL/min (>60); Globulin 3.2 g/dL (1.7-4.1); Glucose 105 mg/dL (80-110); HEMOLYSIS < 15 (0-50); Potassium 3.6 mmol/L (3.4-5.1); Sodium 140 mmol/L (137-145); Total Protein 8.2 g/dL (6.3-8.2)
== END ==
PROVIDERS: Family Provider Internal Medicine Hematology & Oncology; PCP Internal Medicine; Referring Provider Internal Medicine Hematology & Oncology; Visit Provider Internal Medicine Hematology & Oncology
DX: C91.10 Chronic lymphocytic leukemia of B-cell type not having achieved remission (principal)
CPT/HCPCS: 36415; 80053; 85025

== ENCOUNTER → 2021-10-04 15:18 | Outpatient (CLI) | payer MEDICARE, MEDICAID, SELFPAY ==
--- NOTE | 2021-10-04 | DI.MG.S_ITS ---
BILATERAL DIGITAL SCREENING MAMMOGRAM 3D/2D WITH CAD: 10/04/2021 CLINICAL: Routine screening. Comparison is made to exams dated: 03/24/2019 mammogram, 08/17/2017 mammogram, and 02/25/2016 mammogram - [facility]. The tissue of both breasts is heterogeneously dense. This may lower the sensitivity of mammography. Current study was also evaluated with a Computer Aided Detection (CAD) system. There are benign calcifications in both breasts. There also is a biopsy clip in the left breast. No significant masses, calcifications, or other findings are seen in either breast. There has been no significant interval change. IMPRESSION: BENIGN There is no mammographic evidence of malignancy. A 1 year screening mammogram is recommended. This exam was interpreted at Station ID: [id number]. NOTE: For mammograms, a report in lay terms will be sent to the patient. Approximately 15% of breast malignancies will not be visualized mammographically. In the management of a palpable breast mass, a negative mammogram must not discourage biopsy of a clinically suspicious lesion. Electronically Signed By: Yosvany batista/gary:10/06/2021 07:33:54 letter sent: Normal Exam ACR BI-RADS Category 2: Benign Finding(s) [id number]
== END ==
PROVIDERS: Family Provider Internal Medicine Hematology & Oncology; PCP Internal Medicine; Referring Provider Internal Medicine; Visit Provider Internal Medicine
DX: Z12.31 Encounter for screening mammogram for malignant neoplasm of breast (principal)
CPT/HCPCS: 77063; 77067

== ENCOUNTER → 2021-12-30 09:08 | Outpatient (CLI) | payer MEDICARE, MEDICAID, SELFPAY ==
[2021-12-30 10:00] LABS: Add Manual Diff / Slide Review NO; Basophils Absolute Auto 0 /uL (0-100); Basophils Percent Auto 1.2 % (0-2); Eosinophils Absolute Auto 0 /uL (0-450); Eosinophils Percent Auto 1.4 % (2-4); Hematocrit 35.6 % (36-46); Hemoglobin 12.5 g/dL (12.0-16.0); Lymphocytes Absolute Auto 600 /uL (1100-4500); Lymphocytes Percent Auto 19.3 % (25-40); Mean Corpuscular HGB Conc 35.1 % (30-36); Mean Corpuscular Volume 88.5 fL (80-100); Monocytes Absolute Auto 300 /uL (0-900); Monocytes Percent Auto 10.2 % (3-14); Neutrophils Absolute Auto 2300 /uL (1500-7000); Neutrophils Percent Auto 67.9 % (50-75); Platelet Count 237 X10^3/uL (150-400); Red Blood Cell Count 4.02 X10^6/uL (4.0-5.2); Red Cell Distribution Width 14.1 % (11.6-14.8); White Blood Cell Count 3.4 X10^3/uL (4.5-11.0)
[2021-12-30 10:17] LABS: C-Reactive Protein Quant < 0.5 mg/dL (<1.0)
[2021-12-30 10:23] LABS: Erythrocyte Sedimentation Rate 11 MM/HR (0-20)
[2021-12-30 11:00] LABS: Alanine Aminotransferase 21 IU/L (<35); Albumin 4.6 g/dL (3.5-5.0); Alkaline Phosphatase 50 U/L (38-126); Aspartate Aminotransferase 24 IU/L (14-36); BUN Creatinine Ratio 22.4 (6-22); Bilirubin Total 0.6 mg/dL (0.2-1.3); Blood Urea Nitrogen 13 mg/dL (7-17); Carbon Dioxide 28 mmol/L (22-32); Chloride 103 mmol/L (98-107); Estimated Glomerular Filt Rate > 60 mL/min (>60); Globulin 2.3 g/dL (1.7-4.1); Glucose 91 mg/dL (80-110); HEMOLYSIS < 15 (0-50); Potassium 4.5 mmol/L (3.4-5.1); Sodium 140 mmol/L (137-145); Total Protein 6.9 g/dL (6.3-8.2)
== END ==
PROVIDERS: Family Provider Internal Medicine Hematology & Oncology; PCP Internal Medicine; Referring Provider Internal Medicine Rheumatology; Visit Provider Internal Medicine Rheumatology
DX: C91.10 Chronic lymphocytic leukemia of B-cell type not having achieved remission (principal); M05.79 Rheumatoid arthritis with rheumatoid factor of multiple sites without organ or systems involvement
CPT/HCPCS: 36415; 80053; 85025; 85651; 86140

== ENCOUNTER → 2022-01-02 13:47 | Outpatient (CLI) | payer MEDICARE, MEDICAID, SELFPAY ==
[2022-01-05 08:10] LABS: Candida species Negative (Negative); Gardnerella vaginalis Negative (Negative); Trichomoas vaginalis Negative (Negative)
== END ==
PROVIDERS: Family Provider Internal Medicine Hematology & Oncology; PCP Internal Medicine; Visit Provider Physician Assistant Medical
DX: N89.8 Other specified noninflammatory disorders of vagina (principal)
CPT/HCPCS: 87480; 87510; 87660

== ENCOUNTER → 2022-11-30 10:26 | Outpatient (CLI) | payer MEDICARE, MEDICAID, SELFPAY ==
[2022-11-30 10:46] LABS: Appearance Urine UA SL CLOUDY; Bilirubin Urine UA NEGATIVE (NEGATIVE); Color Urine UA YELLOW; Glucose Urine UA NEGATIVE (Negative); Ketones Urine UA NEGATIVE (NEGATIVE); Leukocyte Esterase Urine UA TRACE (NEGATIVE); Nitrite Urine UA NEGATIVE (Negative); Occult Blood Urine UA 3+ (Negative); Protein Urine UA TRACE (Negative); Specific Gravity Urine UA 1.025 (1.000-1.035); Urobilinogen Urine UA 0.2 E.U./dL (0.2); pH Urine UA 6.5 (4.5-8.0)
[2022-11-30 10:53] LABS: Amorphous Sediment Urine 1+; Bacteria Urine None Seen; Culture Indicated Urine Specimen Cultured; RBC Urine 30-100/HPF (0-5/HPF); Squamous Epithelial Cell Urine 0-1 /HPF (0-5/HPF); WBC Urine 5-10/HPF (0-5/HPF)
== END ==
PROVIDERS: Family Provider Internal Medicine Hematology & Oncology; PCP Internal Medicine; Referring Provider Specialist; Visit Provider Specialist
DX: N39.0 Urinary tract infection, site not specified (principal)
CPT/HCPCS: 81003; 81015; 87086

== ENCOUNTER → 2023-05-24 16:39 | Outpatient (CLI) | payer MEDICARE, MEDICAID, SELFPAY ==
[2023-05-26 14:36] LABS: Candida species Negative (Negative); Gardnerella vaginalis Positive (Negative); Trichomoas vaginalis Negative (Negative)
[2023-05-30 15:02] LABS: Chlamydia trachomatis Negative (Negative); Mycoplasma genitalium Negative (Negative); Neisseria gonorrhoeae Negative (Negative)
== END ==
PROVIDERS: Family Provider Internal Medicine Hematology & Oncology; PCP Internal Medicine; Visit Provider Specialist
DX: N89.8 Other specified noninflammatory disorders of vagina (principal); Z11.3 Encounter for screening for infections with a predominantly sexual mode of transmission
CPT/HCPCS: 87255; 87480; 87491; 87510; 87563; 87591; 87660

== ENCOUNTER → 2023-11-28 09:47 | Outpatient (CLI) | payer MEDICARE, MEDICAID, SELFPAY ==
[2023-11-28 11:13] LABS: Add Manual Diff / Slide Review NO; Basophils Absolute Auto 100 /uL (0-100); Basophils Percent Auto 1.5 % (0-2); Eosinophils Absolute Auto 100 /uL (0-450); Eosinophils Percent Auto 2.5 % (2-4); Hematocrit 38.1 % (36-46); Hemoglobin 13.1 g/dL (12.0-16.0); Lymphocytes Absolute Auto 1500 /uL (1100-4500); Lymphocytes Percent Auto 34.1 % (25-40); Mean Corpuscular HGB Conc 34.5 % (30-36); Mean Corpuscular Hemoglobin 30.3 PG (26-34); Mean Corpuscular Volume 87.8 fL (80-100); Monocytes Absolute Auto 400 /uL (0-900); Monocytes Percent Auto 9.4 % (3-14); Neutrophils Absolute Auto 2300 /uL (1500-7000); Neutrophils Percent Auto 52.5 % (50-75); Platelet Count 259 X10^3/uL (150-400); Red Blood Cell Count 4.33 X10^6/uL (4.0-5.2); Red Cell Distribution Width 14.2 % (11.6-14.8); White Blood Cell Count 4.3 X10^3/uL (4.5-11.0)
[2023-11-28 11:57] LABS: Alanine Aminotransferase 20 IU/L (<35); Albumin 4.2 g/dL (3.5-5.0); Albumin Globulin Ratio 1.8 (1.0-2.8); Alkaline Phosphatase 45 U/L (38-126); Aspartate Aminotransferase 20 IU/L (14-36); Bilirubin Total 0.7 mg/dL (0.2-1.3); Blood Urea Nitrogen 12 mg/dL (7-17); Calcium 10.7 mg/dL (8.4-10.2); Carbon Dioxide 29 mmol/L (22-32); Chloride 105 mmol/L (98-107); Estimated Glomerular Filt Rate > 60 mL/min (>60); Globulin 2.4 g/dL (1.7-4.1); Glucose 86 mg/dL (80-110); HEMOLYSIS < 15 (0-50); Sodium 137 mmol/L (137-145); Total Protein 6.6 g/dL (6.3-8.2)
== END ==
PROVIDERS: Family Provider Internal Medicine Hematology & Oncology; PCP Family Medicine; Referring Provider Internal Medicine Rheumatology; Visit Provider Internal Medicine Rheumatology
DX: M05.79 Rheumatoid arthritis with rheumatoid factor of multiple sites without organ or systems involvement (principal)
CPT/HCPCS: 36415; 80053; 85025

== ENCOUNTER → 2024-07-17 14:00 | Outpatient (CLI) | payer MEDICARE, MEDICAID, SELFPAY ==
[2024-07-17 14:58] LABS: Add Manual Diff / Slide Review NO; Basophils Absolute Auto 0 /uL (0-100); Basophils Percent Auto 0.7 % (0-2); Eosinophils Absolute Auto 100 /uL (0-450); Eosinophils Percent Auto 2.4 % (2-4); Hematocrit 38.7 % (36-46); Hemoglobin 13.3 g/dL (12.0-16.0); Lymphocytes Absolute Auto 1400 /uL (1100-4500); Lymphocytes Percent Auto 26.6 % (25-40); Mean Corpuscular HGB Conc 34.4 % (30-36); Mean Corpuscular Hemoglobin 30.3 PG (26-34); Mean Corpuscular Volume 88.1 fL (80-100); Monocytes Absolute Auto 400 /uL (0-900); Monocytes Percent Auto 7.1 % (3-14); Neutrophils Absolute Auto 3400 /uL (1500-7000); Neutrophils Percent Auto 63.2 % (50-75); Platelet Count 307 X10^3/uL (150-400); Red Blood Cell Count 4.39 X10^6/uL (4.0-5.2); Red Cell Distribution Width 14.1 % (11.6-14.8); White Blood Cell Count 5.4 X10^3/uL (4.5-11.0)
[2024-07-17 15:22] LABS: Alanine Aminotransferase 17 IU/L (<35); Albumin 4.4 g/dL (3.5-5.0); Alkaline Phosphatase 49 U/L (38-126); Aspartate Aminotransferase 20 IU/L (14-36); Bilirubin Total 0.5 mg/dL (0.2-1.3); Blood Urea Nitrogen 12 mg/dL (7-17); Calcium 10.3 mg/dL (8.4-10.2); Carbon Dioxide 27 mmol/L (22-32); Chloride 101 mmol/L (98-107); Estimated Glomerular Filt Rate > 60 mL/min (>60); Globulin 2.2 g/dL (1.7-4.1); Glucose 132 mg/dL (80-110); HEMOLYSIS < 15 (0-50); Potassium 4.3 mmol/L (3.4-5.1); Sodium 134 mmol/L (137-145); Total Protein 6.6 g/dL (6.3-8.2)
== END ==
PROVIDERS: Family Provider Internal Medicine Hematology & Oncology; PCP Family Medicine; Referring Provider Internal Medicine Rheumatology; Visit Provider Internal Medicine Rheumatology
DX: M05.79 Rheumatoid arthritis with rheumatoid factor of multiple sites without organ or systems involvement (principal)
CPT/HCPCS: 36415; 80053; 85025

== ENCOUNTER → 2024-12-19 12:24 | Outpatient (CLI) | payer MEDICARE, MEDICAID, SELFPAY ==
[2024-12-19 13:12] LABS: Add Manual Diff / Slide Review NO; Basophils Absolute Auto 100 /uL (0-100); Basophils Percent Auto 1.2 % (0-2); Eosinophils Absolute Auto 100 /uL (0-450); Eosinophils Percent Auto 3.2 % (2-4); Hematocrit 38.1 % (36-46); Hemoglobin 13.4 g/dL (12.0-16.0); Lymphocytes Absolute Auto 1000 /uL (1100-4500); Lymphocytes Percent Auto 21.6 % (25-40); Mean Corpuscular HGB Conc 35.2 % (30-36); Mean Corpuscular Hemoglobin 30.5 PG (26-34); Mean Corpuscular Volume 86.7 fL (80-100); Monocytes Absolute Auto 600 /uL (0-900); Monocytes Percent Auto 12.7 % (3-14); Neutrophils Absolute Auto 2700 /uL (1500-7000); Neutrophils Percent Auto 61.3 % (50-75); Platelet Count 264 X10^3/uL (150-400); Red Cell Distribution Width 13.8 % (11.6-14.8); White Blood Cell Count 4.5 X10^3/uL (4.5-11.0)
[2024-12-19 13:42] LABS: Alanine Aminotransferase 20 IU/L (<35); Albumin 4.9 g/dL (3.5-5.0); Albumin Globulin Ratio 2.1 (1.0-2.8); Alkaline Phosphatase 53 U/L (38-126); Aspartate Aminotransferase 24 IU/L (14-36); BUN Creatinine Ratio 24.6 (6-22); Bilirubin Total 0.6 mg/dL (0.2-1.3); Blood Urea Nitrogen 15 mg/dL (7-17); Calcium 10.5 mg/dL (8.4-10.2); Carbon Dioxide 28 mmol/L (22-32); Chloride 100 mmol/L (98-107); Estimated Glomerular Filt Rate > 60 mL/min (>60); Globulin 2.3 g/dL (1.7-4.1); Glucose 86 mg/dL (80-110); HEMOLYSIS < 15 (0-50); Potassium 4.6 mmol/L (3.4-5.1); Sodium 135 mmol/L (137-145); Total Protein 7.2 g/dL (6.3-8.2)
== END ==
PROVIDERS: Family Provider Internal Medicine Hematology & Oncology; PCP Student in an Organized Health Care Education/Training Program; Referring Provider Internal Medicine Hematology & Oncology; Visit Provider Internal Medicine Hematology & Oncology
DX: C91.10 Chronic lymphocytic leukemia of B-cell type not having achieved remission (principal)
CPT/HCPCS: 36415; 80053; 85025

== ENCOUNTER → 2025-01-08 14:40 | Outpatient (CLI) | payer MEDICARE, MEDICAID, SELFPAY ==
[2025-01-10 03:37] LABS: Immunoglobulin G, Quantitative 855 mg/dL (586-1602)
== END ==
PROVIDERS: Family Provider Internal Medicine Hematology & Oncology; PCP Student in an Organized Health Care Education/Training Program; Referring Provider Student in an Organized Health Care Education/Training Program; Visit Provider Nurse Practitioner Family
DX: C91.10 Chronic lymphocytic leukemia of B-cell type not having achieved remission (principal)
CPT/HCPCS: 36415; 82784

== ENCOUNTER → 2025-07-29 13:16 | Outpatient (CLI) | payer MEDICARE, MEDICAID, SELFPAY ==
--- NOTE | 2025-07-29 13:19 | DI.RAD.S_ITS ---
PROCEDURE: XR FOOT LT MIN 3V INDICATIONS: PAIN TECHNIQUE: 3 views of the foot were acquired. COMPARISON: None. FINDINGS/IMPRESSION: Mild hallucis valgus. No acute fracture or dislocation. Joint spaces are well maintained. Dictated by: Kaila Castorena M.D. on 07/29/2025 at 16:11 Approved by: Kaila Castorena M.D. on 07/29/2025 at 16:13
== END ==
PROVIDERS: Family Provider Internal Medicine Hematology & Oncology; PCP Student in an Organized Health Care Education/Training Program; Referring Provider Family Medicine; Visit Provider Family Medicine
DX: M79.672 Pain in left foot (principal); M20.12 Hallux valgus (acquired), left foot
CPT/HCPCS: 73630